=== PATIENT | male | born 1930 | race Caucasian/White ===

== ENCOUNTER 2017-08-27 05:11 | Emergency (ER) | payer MEDICARE, BC ==
[2017-08-27 05:18] VITALS: BP 108/66
[2017-08-27 06:05] LABS: CHLORIDE,CL 101 mmol/L (101-111); SODIUM,NA 135 mmol/L (135-145)
--- NOTE | 2017-08-27 06:53 | EDM.PDOC ---
<Yvonne Irizarry - Last Filed: 08/27/17 06:49> ED HPI GENERAL MEDICAL PROBLEM - General Chief Complaint: Abdominal Pain Stated Complaint: SICK, ABD PAIN [id number] Time Seen by Provider: 08/27/17 05:20 Source of Information: Reports: Patient History Limitations: Reports: No Limitations - History of Present Illness INITIAL COMMENTS - FREE TEXT/NARRATIVE: C/o low abdominal pain starting 2 days ago, notes pain to have started epigastric and moved down. 6 dark diarrhea stools 2 days ago, 2 yesterday. Pain constant tonight. Denies nausea vomiting No fevers or chills. No prior hx of similar surgeries Bilateral Lower Abdomen Pain Score (Numeric/FACES): 10 - Related Data Allergies Allergy/AdvReac Type Severity Reaction Status Date / Time latex Allergy Unknown UNKNOWN Verified 08/27/17 05:18 SULFA Allergy Unknown Swelling Uncoded 08/27/17 05:18 Home Meds: Home Meds Aspirin 162 mg PO DAILY 02/04/15 [History] Atenolol 25 mg PO DAILY 02/04/15 [History] Multivitamin [Multivitamins] 1 each PO DAILY 02/04/15 [History] Simvastatin 20 mg PO DAILY 02/04/15 [History] Tamsulosin [Tamsulosin 24 Hr] 0.4 mg PO DAILY 02/04/15 [History] Vitamin E 400 unit PO DAILY 02/04/15 [History] Pantoprazole [ProTONIX] 40 mg PO DAILY 09/26/16 [History] Garlic 100 mg PO DAILY 09/27/16 [History] Past Medical History HEENT History: Reports: Impaired Vision Cardiovascular History: Reports: Hypertension Gastrointestinal History: Reports: GERD Oncologic (Cancer) History: Reports: Basal Cell Carcinoma, Prostate, Other (See Below) - Past Surgical History Cardiovascular Surgical History: Reports: Coronary Artery Stent Male Surgical History: Reports: Prostatectomy Musculoskeletal Surgical History: Reports: Hip Replacement, Shoulder Surgery, Other (See Below) Other Musculoskeletal Surgeries/Procedures:: wrist surgery Social & Family History - Tobacco Use Smoking Status *Q: Former Smoker Used Tobacco, but Quit: Yes Month/Year Tobacco Last Used: Second Hand Smoke Exposure: No - Recreational Drug Use Recreational Drug Use: No ED ROS GENERAL - Review of Systems Review Of Systems: ROS reveals no pertinent complaints other than HPI. ED EXAM, GI/ABD - Physical Exam Exam: See Below Exam Limited By: No Limitations General Appearance: Alert, Mild Distress Eyes: Bilateral: EOMI Ears: Normal External Exam Nose: Normal Inspection Throat/Mouth: Normal Inspection Head: Atraumatic, Normocephalic Neck: Normal Inspection Respiratory/Chest: No Respiratory Distress, Lungs Clear, Normal Breath Sounds Cardiovascular: Normal Peripheral Pulses, Regular Rate, Rhythm GI/Abdominal Exam: Guarding (Right lower), Tender (generalized lower greater on right no rebound), Abnormal Bowel Sounds (decreased left, increased) Rectal (Males) Exam: Normal Rectal Tone, Heme - Stool, Hemorrhoids Back Exam: Normal Inspection Extremities: Normal Inspection Neurological: Alert, Oriented, Normal Cognition Psychiatric: Normal Affect, Normal Mood Skin Exam: Warm, Dry, Intact, Normal Color Course - Vital Signs Last Recorded V/S: Last Vital Signs Temp 97.6 F 08/27/17 05:15 Pulse 116 H 08/27/17 05:15 Resp 18 08/27/17 05:15 BP 108/66 08/27/17 05:15 Pulse Ox 98 08/27/17 05:15 - Orders/Labs/Meds Orders: Active Orders 24 hr Category Date Time Status CULTURE BLOOD [BC] Stat Lab 08/27/17 06:05 Received Hemoccult, Stool [OCCULT BLOOD DIAGNOSTIC] [OP] Stat Lab 08/27/17 06:02 Ordered UA W/MICROSCOPIC [URIN] Stat Lab 08/27/17 05:33 Ordered Labs: Laboratory Tests 08/27/17 08/27/17 08/27/17 Range/Units 05:38 05:38 06:05 WBC 10.4 H (5.0-10.0) 10^3/uL RBC 4.33 L (4.6-6.2) 10^6/uL Hgb 13.6 L (14.0-18.0) g/dL Hct 41.0 (40.0-54.0) % MCV 94.7 (80-100) fL MCH 31.4 (27.0-34.0) pg MCHC 33.2 (33.0-35.0) g/dL Plt Count 141 L (150-450) 10^3/uL Neut % (Auto) 80.6 H (42.2-75.2) % Lymph % (Auto) 12.0 L (20.5-50.1) % [place] % (Auto) 7.3 (2-8) % Eos % (Auto) 0.0 L (1.0-3.0) % Baso % (Auto) 0.1 (0.0-1.0) % Sodium 135 (135-145) mmol/L Potassium 3.9 (3.6-5.0) mmol/L Chloride 101 (101-111) mmol/L Carbon Dioxide 26.0 (21.0-31.0) mmol/L Anion Gap 11.9 BUN 14 (7-18) mg/dL Creatinine 1.0 (0.6-1.3) mg/dL Est Cr Clr Drug Dosing 58.20 mL/min Estimated GFR (MDRD) > 60 BUN/Creatinine Ratio 14.00 Glucose 117 H (74-105) mg/dL Lactic Acid 1.2 (0.5-2.2) mmol/L Calcium 9.1 (8.4-10.2) mg/dl Total Bilirubin 0.9 (0.2-1.0) mg/dL AST 27 (10-42) IU/L ALT 21 (10-60) IU/L Alkaline Phosphatase 51 (42-121) IU/L Troponin I 0.02 (0.00-0.02) ng/ml Total Protein 7.3 (6.7-8.2) g/dl Albumin 3.9 (3.2-5.5) g/dl Globulin 3.4 Albumin/Globulin Ratio 1.15 Amylase 28 (28-100) U/L Departure - Departure Disposition: DC/Tfer to [facility] 02 Clinical Impression: Abdominal pain Qualifiers: Abdominal location: right lower quadrant Qualified Code(s): R10.31 - Right lower quadrant pain Appendicitis Qualifiers: Appendicitis type: acute appendicitis Acute appendicitis type: unspecified acute appendicitis type Qualified Code(s): K35.80 - Unspecified acute appendicitis - Discharge Information Forms: ED Department Discharge, Interfacility Transfer EMTALA <Abby Vyas - Last Filed: 08/27/17 07:37> Course - Radiology Interpretation Free Text/Narrative:: CT Abdomen/Pelvis: Acute Appendicitis See Rad report - Re-Assessments/Exams Free Text/Narrative Re-Assessment/Exam: 08/27/17 07:32 CRAIG Gee, discussed p Departure - Departure Time of Disposition: 07:35 Condition: Fair
[2017-08-27] MEDS ORDERED: HYDROmorphone 0.5 MG/0.5 ML Syringe IVPUSH ONE ×2 (07:44→07:47)
== END 2017-08-27 08:15 ==
LOC: DL.ED 05:11
DX: K35.80 Unspecified acute appendicitis (principal); I10 Essential (primary) hypertension; Z91.040 Latex allergy status; Z88.2 Allergy status to sulfonamides; Z79.82 Long term (current) use of aspirin; Z79.899 Other long term (current) drug therapy; Z87.891 Personal history of nicotine dependence
CPT/HCPCS: 36415; 74176; 80053; 82150; 82272; 83605; 84484; 85025; 87040; 99285; J1170; 99284

== ENCOUNTER 2017-09-29 16:17 | Inpatient (IN) | payer MEDICARE, BC ==
[2017-09-29] MEDS ORDERED: Docusate Sodium 100 MG Cap PO PRN (17:35)
[2017-09-29] MEDS ORDERED: Ondansetron 4 MG/2 ML SDV IVPUSH PRN (17:35)
[2017-09-29] MEDS ORDERED: Sodium Chloride 0.9% 500 ML IV SCH (17:45)
[2017-09-29] MEDS: Sodium Chloride 0.9% 1,000 ML IV SCH (18:33)
[2017-09-29] MEDS ORDERED: Piperacillin/Tazobactam 2.25 GM in Sodium Chloride 0.9% 50 ML IV SCH (19:30)
[2017-09-29] MEDS: Piperacillin/Tazobactam 3.375 GM in Sodium Chloride 0.9% 100 ML IV SCH (21:33)
[2017-09-30] MEDS: Piperacillin/Tazobactam 3.375 GM in Sodium Chloride 0.9% 100 ML IV SCH ×4 (02:10→20:37)
[2017-09-30] MEDS: Sodium Chloride 0.9% 1,000 ML IV SCH ×3 (03:46→20:39)
[2017-09-30] MEDS: Acetaminophen 325 MG Tab PO PRN ×2 (05:39→20:36)
[2017-09-30] MEDS: Pantoprazole 40 MG Tab.CR PO SCH (05:39)
[2017-09-30 06:47] LABS: ANION GAP 12.7
[2017-09-30] MEDS ORDERED: Atenolol 25 MG Tab PO SCH (09:00)
[2017-09-30] MEDS: Tamsulosin 0.4 MG Cap.ER PO SCH (09:28)
[2017-09-30] MEDS: Aspirin 81 MG Tab.Chew PO SCH (09:28)
[2017-09-30] MEDS: Digoxin 125 MCG Tab PO SCH (09:28)
[2017-09-30] MEDS: Amiodarone 200 MG Tab PO SCH ×2 (09:29→20:37)
[2017-09-30] MEDS: Enoxaparin 30 MG/0.3 ML Syringe SUBCUT SCH (09:29)
[2017-10-01] MEDS: Piperacillin/Tazobactam 3.375 GM in Sodium Chloride 0.9% 100 ML IV SCH ×4 (02:11→20:21)
[2017-10-01] MEDS: REFRESH OPTIVE EYEBOTH PRN (02:12)
[2017-10-01] MEDS: Pantoprazole 40 MG Tab.CR PO SCH ×2 (04:57→05:05)
[2017-10-01] MEDS: Sodium Chloride 0.9% 1,000 ML IV SCH ×3 (05:48→23:21)
[2017-10-01 06:39] LABS: ANION GAP 10.3; CHLORIDE,CL 106 mmol/L (101-111); SODIUM,NA 136 mmol/L (135-145)
[2017-10-01] MEDS ORDERED: Potassium Chloride 10 MEQ Tab.ER PO ONE ×2 (07:40→20:44)
[2017-10-01] MEDS: Tamsulosin 0.4 MG Cap.ER PO SCH (09:01)
[2017-10-01] MEDS: Digoxin 125 MCG Tab PO SCH (09:01)
[2017-10-01] MEDS: Amiodarone 200 MG Tab PO SCH ×2 (09:01→20:21)
[2017-10-01] MEDS: Aspirin 81 MG Tab.Chew PO SCH (09:02)
[2017-10-01] MEDS: metroNIDAZOLE/Normal Saline 500 MG in Premix Bag 100 BAG IV SCH ×3 (09:04→23:14)
[2017-10-01] MEDS: Enoxaparin 30 MG/0.3 ML Syringe SUBCUT SCH (10:39)
--- NOTE | 2017-10-01 11:42 | PN ---
DATE: 10/01/2017 The patient is still having some low-grade temperature, and because of this, we did a CAT scan of his abdomen and CAT scan of the abdomen showed an interval appendectomy and partial colectomy with ileocolic anastomosis since 08/27/2017 and there was some inflammatory haziness and stranding on the right side mesentery in the operative region which could be residual from the surgery or infectious with an apparent extraluminal 3.7 cm focus of fluid which may represent seroma or developing abscess. There is also some mild dilatation and wall thickening of the small bowel loops in the right mid abdomen, and this was discussed with the patient. The patient denies though any significant abdominal pain. His appetite has been improving and good. LABORATORY DATA: Lab workup this morning, WBC is 7.1, hemoglobin is 8.3, hematocrit is 25.4, platelet is 257. Potassium is 3.3, the rest of the panel unremarkable. Urine culture, preliminary result is no growth and blood culture is also no growth so far. OBJECTIVE: Vital Signs: Blood pressure is 139/65, pulse of 102, respiration 18, temperature of 98.6. Heart: Regular rate and rhythm. Normal S1 and S2. No gallops. No rubs. Lungs: Clear. No crackles. No wheezing. Abdomen: Soft and nontender. Bowel sounds positive. Extremities: Negative for any significant pedal edema. No calf tenderness. PLAN: I am going to add Flagyl 500 mg IV q.8 hours to his current IV antibiotics (Zosyn) because of the continued low grade temperature. I am also going to give potassium 40 mEq p.o. x1 today because of the slightly low potassium, otherwise we will continue with the rest of his medication. [facility] /[id number]
[2017-10-01] MEDS: traZODone 50 MG Tab PO SCH (20:21)
[2017-10-02] MEDS: Piperacillin/Tazobactam 3.375 GM in Sodium Chloride 0.9% 100 ML IV SCH ×4 (03:09→20:56)
[2017-10-02] MEDS: Pantoprazole 40 MG Tab.CR PO SCH (05:40)
[2017-10-02 06:54] LABS: ANION GAP 11.9; CHLORIDE,CL 103 mmol/L (101-111); SODIUM,NA 133 mmol/L (135-145)
--- NOTE | 2017-10-02 07:23 | PN ---
DATE: 09/30/2017 SUBJECTIVE: The patient this morning is feeling slightly better, still a little bit weak though; but he denies any chest pain, shortness of breath, significant abdominal pain, vomiting, nor any other complaints. Urinalysis was sent, and this showed 5 to 10 wbc's with many epithelial cells and many bacteria. This was sent for culture, and recheck digoxin level this morning is. 1.6 which is now within normal limits. Chem 6 this morning; sodium is 133, BUN is 28, and calcium 7.8. The rest of the panel is unremarkable. OBJECTIVE: Vital Signs: Blood pressure is 98/55 (improving), pulse 87, respirations 16, and temperature of 99. Heart: Regular rate and rhythm. No gallops. No rubs. Lungs: Equal bilaterally. No crackles. No wheezing. Abdomen: Soft. There is mild direct tenderness on the periumbilical area. No rebound. Bowel sounds positive. Extremities: Negative for any significant pedal edema. No calf tenderness. MEDICATIONS: Reviewed. PLAN: We will restart digoxin at a lower level of 0.125 mg daily. We will also restart his amiodarone. We will continue with IV Zosyn. I am also going to order for a CAT scan of the abdomen and pelvis as the focus of infection is still not yet clear-cut, as his urine is not remarkable and a chest x-ray is also unremarkable. I would like to make sure that there is nothing going on in the intraabdominal area, especially of his recent abdominal surgery. [facility] /[id number]
[2017-10-02] MEDS: metroNIDAZOLE/Normal Saline 500 MG in Premix Bag 100 BAG IV SCH (08:46)
[2017-10-02] MEDS: Tamsulosin 0.4 MG Cap.ER PO SCH (08:51)
[2017-10-02] MEDS: Amiodarone 200 MG Tab PO SCH ×2 (08:51→20:59)
[2017-10-02] MEDS: Digoxin 125 MCG Tab PO SCH (08:51)
[2017-10-02] MEDS: Enoxaparin 30 MG/0.3 ML Syringe SUBCUT SCH (08:51)
[2017-10-02] MEDS: Aspirin 81 MG Tab.Chew PO SCH (08:51)
--- NOTE | 2017-10-02 09:11 | HP ---
DOS: 09/29/2017 CHIEF COMPLAINT: Fever, chills, and generalized weakness. HISTORY OF PRESENT ILLNESS: The patient is an 86-year-old gentleman who was admitted directly from [facility] because the patient for the last couple of days has not been feeling good, and last night, he started having some fever and chills. He also had some decreased appetite and poor intake. The patient denies, though, any chest pain, shortness of breath, abdominal pain, nausea, vomiting, diarrhea, dysuria, nor any other associated symptoms. Because of this, he came into the clinic for further evaluation and management, and he was subsequently admitted. The patient was recently discharge from [facility] in [place] because of acute perforated appendicitis and also noted to have neoplasm of the right colon, and so the patient underwent partial right hemicolectomy. During the hospitalization, he also had some atrial tachycardia, for which he was started on amiodarone and also was placed on digoxin. He was subsequently discharged, and he was being followed by home health care for wound dressing until his symptomatology started. PAST MEDICAL HISTORY: As in [facility]. He has also history of coronary artery disease, dyslipidemia, hypertension, and neuropathy. SOCIAL HISTORY: The patient is . He is a nonsmoker, nonalcohol drinker, and lives with his . FAMILY HISTORY: Noncontributory. REVIEW OF SYSTEMS: As in [facility]. The rest of the review of systems is negative. ALLERGIES: Sulfa and latex. HOME MEDICATIONS: 1. Vitamin E. 2. Kenalog. 3. Flomax. 4. [place] nasal spray. 5. Simvastatin. 6. Protonix. 7. Fish oil. 8. Metoprolol. 9. Digoxin. 10.Amiodarone. PHYSICAL EXAMINATION: General: The patient is alert, looks weak, on a wheelchair, but not in any acute distress. SHEENT: Remarkable for diminished skin turgor. Mucous membranes moist. Neck: Supple. No JVD. Heart: Regular rate and rhythm. Normal S1 and S2. No gallops. No rubs. Lungs: Equal bilaterally. No crackles. No wheezing. Abdomen: Soft and nontender. Bowel sounds positive. Drain tube in place. Extremities: Negative for any pedal edema. No calf tenderness. LAB WORKUP: CBC; WBC is 13.09, hemoglobin is 10.6, hematocrit is 31.6, neutrophils is 81.6% with some immature granulocytes relative percent. There is some toxic polymorphonuclears noted. Comp panel; glucose is 143, creatinine is 1.9, BUN is 26, sodium is 134, and total protein is 6.3. Digoxin level is 2.1. IMAGING: Chest x-ray that was done in the clinic, my reading is unremarkable. ADMITTING DIAGNOSES: 1. Systemic inflammatory response syndrome. 2. Digoxin toxicity. 3. Dehydration. 4. Acute renal insufficiency. 5. Coronary artery disease. TREATMENT PLAN: The patient is going to be admitted to telemetry floor. He will be started on IV fluids and empirically started on IV antibiotics. Blood cultures will be sent. Digoxin will be decreased to 125 mcg p.o. daily, and the rest of the management as necessary. [facility] /[id number]
--- NOTE | 2017-10-02 11:22 | PCM.PN ---
- General Info Date of Service: 10/02/17 Admission Dx/Problem (Free Text): The patient is an 86-year-old man with complex medical history including coronary artery disease and atrial fibrillation. He recently underwent surgery for right colon cancer, had right adilson-colectomy. He was admitted this time because of fever chills and generalized weakness. CT scan of the abdomen suggested fluid collection around the site of recent surgery , possibly a seroma versus evolving abscess. Patient was started on intravenous antibiotics. Digoxin level was also found to be elevated. - Review of Systems General: Reports: Weakness, Malaise HEENT: Reports: No Symptoms Pulmonary: Reports: No Symptoms Cardiovascular: Reports: No Symptoms Gastrointestinal: Reports: Abdominal Pain Musculoskeletal: Reports: No Symptoms - Patient Data Vitals - Most Recent: Last Vital Signs Temp 37.2 C 10/01/17 19:52 Pulse 100 10/02/17 08:51 Resp 20 10/01/17 19:52 BP 140/57 L 10/01/17 19:52 Pulse Ox 93 L 10/01/17 19:52 Weight - Most Recent: 91.172 kg I&O - Last 24 Hours: Intake & Output 10/01/17 10/02/17 10/02/17 22:59 06:59 14:59 Intake Total 340 400 Output Total 325 600 Balance 15 -200 Lab Results Last 24 Hours: Laboratory Results - last 24 hr 10/02/17 10/02/17 Range/Units 05:50 05:50 WBC 7.4 (5.0-10.0) 10^3/uL RBC 2.87 L (4.6-6.2) 10^6/uL Hgb 8.5 L (14.0-18.0) g/dL Hct 25.9 L (40.0-54.0) % MCV 90.2 (80-100) fL MCH 29.6 (27.0-34.0) pg MCHC 32.8 L (33.0-35.0) g/dL Plt Count 256 (150-450) 10^3/uL Neut % (Auto) 70.5 (42.2-75.2) % Lymph % (Auto) 19.9 L (20.5-50.1) % [place] % (Auto) 8.9 H (2-8) % Eos % (Auto) 0.7 L (1.0-3.0) % Baso % (Auto) 0.0 (0.0-1.0) % Sodium 133 L (135-145) mmol/L Potassium 3.9 (3.6-5.0) mmol/L Chloride 103 (101-111) mmol/L Carbon Dioxide 22.0 (21.0-31.0) mmol/L Anion Gap 11.9 BUN 11 (7-18) mg/dL Creatinine 0.7 (0.6-1.3) mg/dL Est Cr Clr Drug Dosing 83.14 mL/min Estimated GFR (MDRD) > 60 Glucose 91 (74-105) mg/dL Calcium 7.7 L (8.4-10.2) mg/dl Pedro Results Last 24 Hours: Microbiology 09/30/17 00:15 Urine Culture - Final Urine, Clean Catch 09/29/17 18:00 Aerobic Blood Culture - Preliminary Blood NO GROWTH AFTER 2 DAYS Anaerobic Blood Culture - Preliminary NO GROWTH AFTER 2 DAYS Med Orders - Current: Current Medications Acetaminophen (Tylenol) 650 mg PO Q4H PRN PRN Reason: Pain (Mild 1-3)/fever Last Admin: 09/30/17 20:36 Dose: 650 mg Amiodarone HCl (Cordarone) 200 mg PO BID [facility] Last Admin: 10/02/17 08:51 Dose: 200 mg Aspirin (Aspirin) 162 mg PO DAILY [facility] Last Admin: 10/02/17 08:51 Dose: 162 mg Digoxin (Lanoxin) 125 mcg PO DAILY [facility] Last Admin: 10/02/17 08:51 Dose: 125 mcg Docusate Sodium (Colace) 100 mg PO BID PRN PRN Reason: Constipation Enoxaparin Sodium (Lovenox) 40 mg SUBCUT DAILY [facility] Piperacillin Sod/Tazobactam (Sod 3.375 gm/ Sodium Chloride) 100 mls @ 200 mls/ hr IV Q6H [facility] Last Admin: 10/02/17 10:11 Dose: 200 mls/hr Sodium Chloride (Normal Saline) 1,000 mls @ 75 mls/hr IV ASDIRECTED [facility] Last Admin: 10/01/17 23:21 Dose: 75 mls/hr Metoprolol Tartrate (Lopressor) 100 mg PO BID [facility] Refresh Optive Own (Med) 0 each EYEBOTH ASDIRECTED PRN PRN Reason: Dry Eyes Last Admin: 10/01/17 02:12 Dose: 1 each Ondansetron HCl (Zofran) 4 mg IVPUSH Q4H PRN PRN Reason: Nausea/Vomiting Pantoprazole Sodium (Protonix) 40 mg PO ACBRK [facility] Last Admin: 10/02/17 05:40 Dose: 40 mg Tamsulosin HCl (Flomax) 0.4 mg PO DAILY [facility] Last Admin: 10/02/17 08:51 Dose: 0.4 mg Trazodone HCl (Trazodone) 50 mg PO BEDTIME [facility] Last Admin: 10/01/17 20:21 Dose: 50 mg Discontinued Medications Atenolol (Tenormin) 25 mg PO DAILY [facility] Enoxaparin Sodium (Lovenox) 30 mg SUBCUT DAILY [facility] Last Admin: 10/02/17 08:51 Dose: 30 mg Sodium Chloride (Normal Saline) 500 mls @ 500 mls/hr IV .BOLUS [facility] Last Admin: 09/29/17 17:20 Dose: 500 mls/hr Sodium Chloride (Normal Saline) 1,000 mls @ 125 mls/hr IV ASDIRECTED [facility] Last Admin: 10/01/17 05:48 Dose: 125 mls/hr Piperacillin Sod/Tazobactam (Sod 2.25 gm/ Sodium Chloride) 50 mls @ 100 mls/hr IV Q6HR [facility] Last Admin: 09/29/17 21:37 Dose: Not Given Metronidazole 500 mg/ Premix 100 mls @ 100 mls/hr IV Q8H [facility] Last Admin: 10/02/17 08:46 Dose: 100 mls/hr Potassium Chloride (Klor-Con 10) 40 meq PO ONETIME ONE Stop: 10/01/17 07:41 Last Admin: 10/01/17 09:00 Dose: 40 meq Potassium Chloride (Klor-Con 10) 40 meq PO ONETIME ONE Stop: 10/01/17 20:45 Last Admin: 10/01/17 23:14 Dose: 40 meq - Exam Quality Assessment: Supplemental Oxygen General: Alert, Oriented Neck: Supple Cardiovascular: Regular Rhythm, Tachycardia GI/Abdominal Exam: Other (Wound VAC applied to lower abdomen) - Problem List Review Problem List Initiated/Reviewed/Updated: Yes - My Orders Last 24 Hours: My Active Orders 10/01/17 21:00 traZODone 50 mg PO BEDTIME 10/02/17 10:23 OT Evaluation and Treatment [CONS] Routine 10/02/17 10:24 PT Evaluation and Treatment [CONS] Routine 10/02/17 21:00 Metoprolol Tartrate [Lopressor] 100 mg PO BID - Plan Plan:: #. Systemic inflammatory response syndrome Patient presented with subjective fever, and was found to have leukocytosis white count of 13,000. Reason for this is not obvious. Differential diagnosis includes infection. CT scan of the abdomen showed fluid collection around the site of recent surgery. Significance is unclear, could be a seroma or an evolving abscess #. Elevated digoxin level serum digoxin was elevated up to 2.1 #. Acute renal failure Serum creatinine was elevated up to 1.9 Improving #. Status post recent abdominal surgery Patient had right hemicolectomy Has fluid collection around the surgical site. Could be a seroma but also could be an evolving abscess #. Atrial fibrillation The patient was on digoxin, metoprolol, and amiodarone Atrial fibrillation has been very difficult to control Plan: Continue intravenous antibiotics. The patient appears to be improving. His white cell count is down to normal. Has not had any fever since admission. Kidney function is also back to normal. Digoxin is on hold. Start patient back on metoprolol and continue amiodarone.
[2017-10-02] MEDS: Sodium Chloride 0.9% 1,000 ML IV SCH (15:51)
[2017-10-02] MEDS: Metoprolol Tartrate 50 MG Tab PO SCH (20:59)
[2017-10-02] MEDS: traZODone 50 MG Tab PO SCH (20:59)
[2017-10-03] MEDS: Piperacillin/Tazobactam 3.375 GM in Sodium Chloride 0.9% 100 ML IV SCH ×4 (02:06→20:09)
[2017-10-03] MEDS: Pantoprazole 40 MG Tab.CR PO SCH (05:42)
[2017-10-03] MEDS: Sodium Chloride 0.9% 1,000 ML IV SCH (05:54)
[2017-10-03] MEDS: Enoxaparin 40 MG/0.4 ML Syringe SUBCUT SCH (08:11)
[2017-10-03] MEDS: Metoprolol Tartrate 50 MG Tab PO SCH ×2 (08:12→20:56)
[2017-10-03] MEDS: Aspirin 81 MG Tab.Chew PO SCH (08:12)
[2017-10-03] MEDS: Amiodarone 200 MG Tab PO SCH ×2 (08:12→20:56)
[2017-10-03] MEDS: Tamsulosin 0.4 MG Cap.ER PO SCH (10:07)
--- NOTE | 2017-10-03 10:30 | PCM.PN ---
- General Info Date of Service: 10/03/17 Admission Dx/Problem (Free Text): The patient is an 86-year-old man with complex medical history including coronary artery disease and atrial fibrillation. He recently underwent surgery for right colon cancer, had right adilson-colectomy. He was admitted this time because of fever chills and generalized weakness. CT scan of the abdomen suggested fluid collection around the site of recent surgery , possibly a seroma versus evolving abscess. Patient was started on intravenous antibiotics. Digoxin level was also found to be elevated. - Review of Systems General: Reports: Weakness, Malaise HEENT: Reports: No Symptoms Cardiovascular: Reports: No Symptoms Gastrointestinal: Reports: Abdominal Pain Skin: Reports: No Symptoms - Patient Data Vitals - Most Recent: Last Vital Signs Temp 36.9 C 10/03/17 07:39 Pulse 85 10/03/17 08:12 Resp 20 10/03/17 07:39 BP 142/64 H 10/03/17 08:12 Pulse Ox 93 L 10/03/17 07:39 Weight - Most Recent: 91.172 kg I&O - Last 24 Hours: Intake & Output 10/02/17 10/03/17 10/03/17 22:59 06:59 14:59 Intake Total 2273 1252 501 Output Total 600 800 150 Balance 1673 452 351 Pedro Results Last 24 Hours: Microbiology 09/29/17 18:00 Aerobic Blood Culture - Preliminary Blood NO GROWTH AFTER 3 DAYS Anaerobic Blood Culture - Preliminary NO GROWTH AFTER 3 DAYS 09/30/17 00:15 Urine Culture - Final Urine, Clean Catch Med Orders - Current: Current Medications Acetaminophen (Tylenol) 650 mg PO Q4H PRN PRN Reason: Pain (Mild 1-3)/fever Last Admin: 09/30/17 20:36 Dose: 650 mg Amiodarone HCl (Cordarone) 200 mg PO BID [facility] Last Admin: 10/03/17 08:12 Dose: 200 mg Aspirin (Aspirin) 162 mg PO DAILY [facility] Last Admin: 10/03/17 08:12 Dose: 162 mg Docusate Sodium (Colace) 100 mg PO BID PRN PRN Reason: Constipation Enoxaparin Sodium (Lovenox) 40 mg SUBCUT DAILY [facility] Last Admin: 10/03/17 08:11 Dose: 40 mg Piperacillin Sod/Tazobactam (Sod 3.375 gm/ Sodium Chloride) 100 mls @ 200 mls/ hr IV Q6H [facility] Last Admin: 10/03/17 08:10 Dose: 200 mls/hr Metoprolol Tartrate (Lopressor) 100 mg PO BID [facility] Last Admin: 10/03/17 08:12 Dose: 100 mg Refresh Optive Own (Med) 0 each EYEBOTH ASDIRECTED PRN PRN Reason: Dry Eyes Last Admin: 10/01/17 02:12 Dose: 1 each Ondansetron HCl (Zofran) 4 mg IVPUSH Q4H PRN PRN Reason: Nausea/Vomiting Pantoprazole Sodium (Protonix) 40 mg PO ACBRK [facility] Last Admin: 10/03/17 05:42 Dose: 40 mg Tamsulosin HCl (Flomax) 0.4 mg PO DAILY [facility] Last Admin: 10/03/17 10:07 Dose: 0.4 mg Trazodone HCl (Trazodone) 50 mg PO BEDTIME [facility] Last Admin: 10/02/17 20:59 Dose: 50 mg Discontinued Medications Atenolol (Tenormin) 25 mg PO DAILY [facility] Digoxin (Lanoxin) 125 mcg PO DAILY [facility] Last Admin: 10/02/17 08:51 Dose: 125 mcg Enoxaparin Sodium (Lovenox) 30 mg SUBCUT DAILY [facility] Last Admin: 10/02/17 08:51 Dose: 30 mg Sodium Chloride (Normal Saline) 500 mls @ 500 mls/hr IV .BOLUS [facility] Last Admin: 09/29/17 17:20 Dose: 500 mls/hr Sodium Chloride (Normal Saline) 1,000 mls @ 125 mls/hr IV ASDIRECTED [facility] Last Admin: 10/01/17 05:48 Dose: 125 mls/hr Piperacillin Sod/Tazobactam (Sod 2.25 gm/ Sodium Chloride) 50 mls @ 100 mls/hr IV Q6HR [facility] Last Admin: 09/29/17 21:37 Dose: Not Given Metronidazole 500 mg/ Premix 100 mls @ 100 mls/hr IV Q8H [facility] Last Admin: 10/02/17 08:46 Dose: 100 mls/hr Sodium Chloride (Normal Saline) 1,000 mls @ 75 mls/hr IV ASDIRECTED [facility] Last Admin: 10/03/17 05:54 Dose: 75 mls/hr Potassium Chloride (Klor-Con 10) 40 meq PO ONETIME ONE Stop: 10/01/17 07:41 Last Admin: 10/01/17 09:00 Dose: 40 meq Potassium Chloride (Klor-Con 10) 40 meq PO ONETIME ONE Stop: 10/01/17 20:45 Last Admin: 10/01/17 23:14 Dose: 40 meq - Exam General: Alert, Oriented, Cooperative HEENT: Pupils Equal Neck: Supple Lungs: Clear to Auscultation Cardiovascular: Regular Rate, Regular Rhythm GI/Abdominal Exam: Soft, Other (Swelling left abdominal flank likely due to edema. Patient has a wound VAC in place) Neurological: No New Focal Deficit - Problem List Review Problem List Initiated/Reviewed/Updated: Yes - My Orders Last 24 Hours: My Active Orders 10/02/17 10:23 OT Evaluation and Treatment [CONS] Routine 10/02/17 10:24 PT Evaluation and Treatment [CONS] Routine 10/02/17 21:00 Metoprolol Tartrate [Lopressor] 100 mg PO BID - Plan Plan:: #. Systemic inflammatory response syndrome Patient presented with subjective fever, and was found to have leukocytosis white count of 13,000. Reason for this is not obvious. Differential diagnosis includes infection. CT scan of the abdomen showed fluid collection around the site of recent surgery. Significance is unclear, could be a seroma or an evolving abscess #. Elevated digoxin level serum digoxin was elevated up to 2.1 #. Acute renal failure Serum creatinine was elevated up to 1.9 Resolved #. Status post recent abdominal surgery Patient had right hemicolectomy Patient is to has a wound VAC in place Has fluid collection around the surgical site. Could be a seroma but also could be an evolving abscess #. Atrial fibrillation patient is in sinus rhythm at this time The patient was on digoxin, metoprolol, and amiodarone Atrial fibrillation has been very difficult to control Plan: Discontinue digoxin completely Discontinue intravenous fluid Discontinue telemetry Provide incentive spirometry Obtain complete blood count Obtain basic metabolic panel Encourage increased activity Continue intravenous Zosyn to complete 10 days
[2017-10-03] MEDS: Digoxin 125 MCG Tab PO SCH (11:41)
[2017-10-03] MEDS: Sodium Chloride 0.9% 10 ML Syringe FLUSH PRN ×2 (20:09→20:51)
[2017-10-03] MEDS: traZODone 50 MG Tab PO SCH (20:56)
[2017-10-03] MEDS: REFRESH OPTIVE EYEBOTH PRN (20:59)
[2017-10-04] MEDS: Sodium Chloride 0.9% 10 ML Syringe FLUSH PRN ×3 (01:40→20:56)
[2017-10-04] MEDS: Piperacillin/Tazobactam 3.375 GM in Sodium Chloride 0.9% 100 ML IV SCH ×4 (01:41→20:10)
[2017-10-04] MEDS: Acetaminophen 325 MG Tab PO PRN ×2 (04:40→20:15)
[2017-10-04] MEDS: Pantoprazole 40 MG Tab.CR PO SCH (06:10)
[2017-10-04 07:50] LABS: ANION GAP 17.2
[2017-10-04 07:51] LABS: CHLORIDE,CL 100 mmol/L (98-109); SODIUM,NA 137 mmol/L (138-146)
[2017-10-04] MEDS: Aspirin 81 MG Tab.Chew PO SCH (08:00)
[2017-10-04] MEDS: Amiodarone 200 MG Tab PO SCH ×2 (08:00→20:58)
[2017-10-04] MEDS: Metoprolol Tartrate 50 MG Tab PO SCH ×2 (08:00→20:57)
[2017-10-04] MEDS: Enoxaparin 40 MG/0.4 ML Syringe SUBCUT SCH (08:00)
[2017-10-04] MEDS: Tamsulosin 0.4 MG Cap.ER PO SCH (08:00)
[2017-10-04] MEDS ORDERED: Potassium Chloride 10 MEQ Tab.ER PO ONE (09:36)
--- NOTE | 2017-10-04 10:20 | PCM.PN ---
- General Info Date of Service: 10/04/17 Subjective Update: Patient states that he did not sleep much last night. He woke up about midnight and was having trouble getting back to sleep. Does have mild intermittent abdominal discomfort. He did have a large bowel movement yesterday His serum potassium is low down to 3.2 today. Denies nausea or vomiting. - Review of Systems General: Reports: Weakness HEENT: Reports: No Symptoms Pulmonary: Reports: No Symptoms Cardiovascular: Reports: No Symptoms Gastrointestinal: Reports: Abdominal Pain Musculoskeletal: Reports: No Symptoms Skin: Reports: No Symptoms - Patient Data Vitals - Most Recent: Last Vital Signs Temp 37.2 C 10/04/17 07:59 Pulse 81 10/04/17 08:00 Resp 18 10/04/17 07:59 BP 116/58 L 10/04/17 08:00 Pulse Ox 94 L 10/04/17 07:59 Weight - Most Recent: 91.172 kg I&O - Last 24 Hours: Intake & Output 10/03/17 10/04/17 10/04/17 22:59 06:59 14:59 Intake Total 150 200 100 Output Total 400 550 Balance -250 -350 100 Lab Results Last 24 Hours: Laboratory Results - last 24 hr 10/04/17 10/04/17 Range/Units 06:45 06:45 WBC 7.2 (5.0-10.0) 10^3/uL RBC 3.11 L (4.6-6.2) 10^6/uL Hgb 9.0 L (14.0-18.0) g/dL Hct 27.7 L (40.0-54.0) % MCV 89.1 (80-100) fL MCH 28.9 (27.0-34.0) pg MCHC 32.5 L (33.0-35.0) g/dL Plt Count 256 (150-450) 10^3/uL Sodium 137 L (138-146) mmol/L Potassium 3.2 L (3.5-4.9) mmol/L Chloride 100 (98-109) mmol/L Carbon Dioxide 23 L (24-29) mmol/L Anion Gap 17.2 BUN 10 (8-26) mg/dL Creatinine 0.7 (0.6-1.3) mg/dL Est Cr Clr Drug Dosing 83.14 mL/min Estimated GFR (MDRD) > 60 Glucose 87 (70-105) mg/dL Calcium Pedro Results Last 24 Hours: Microbiology 09/29/17 18:00 Aerobic Blood Culture - Preliminary Blood NO GROWTH AFTER 4 DAYS Anaerobic Blood Culture - Preliminary NO GROWTH AFTER 4 DAYS Med Orders - Current: Current Medications Acetaminophen (Tylenol) 650 mg PO Q4H PRN PRN Reason: Pain (Mild 1-3)/fever Last Admin: 10/04/17 04:40 Dose: 650 mg Amiodarone HCl (Cordarone) 200 mg PO BID [facility] Last Admin: 10/04/17 08:00 Dose: 200 mg Aspirin (Aspirin) 162 mg PO DAILY [facility] Last Admin: 10/04/17 08:00 Dose: 162 mg Docusate Sodium (Colace) 100 mg PO BID PRN PRN Reason: Constipation Last Admin: 10/03/17 11:54 Dose: 100 mg Enoxaparin Sodium (Lovenox) 40 mg SUBCUT DAILY [facility] Last Admin: 10/04/17 08:00 Dose: 40 mg Piperacillin Sod/Tazobactam (Sod 3.375 gm/ Sodium Chloride) 100 mls @ 200 mls/ hr IV Q6H [facility] Last Infusion: 10/04/17 09:33 Dose: Infused Metoprolol Tartrate (Lopressor) 100 mg PO BID [facility] Last Admin: 10/04/17 08:00 Dose: 100 mg Refresh Optive Own (Med) 0 each EYEBOTH ASDIRECTED PRN PRN Reason: Dry Eyes Last Admin: 10/03/17 20:59 Dose: 1 each Ondansetron HCl (Zofran) 4 mg IVPUSH Q4H PRN PRN Reason: Nausea/Vomiting Pantoprazole Sodium (Protonix) 40 mg PO ACBRK [facility] Last Admin: 10/04/17 06:10 Dose: 40 mg Potassium Chloride (Klor-Con 10) 20 meq PO WITHBREAKFAST [facility] Senna/Docusate Sodium (Senna Plus) 1 tab PO DAILY [facility] Last Admin: 10/04/17 08:00 Dose: 1 tab Sodium Chloride (Saline Flush) 10 ml FLUSH ASDIRECTED PRN PRN Reason: Keep Vein Open Last Admin: 10/04/17 01:40 Dose: 10 ml Tamsulosin HCl (Flomax) 0.4 mg PO DAILY [facility] Last Admin: 10/04/17 08:00 Dose: 0.4 mg Trazodone HCl (Trazodone) 50 mg PO BEDTIME [facility] Last Admin: 10/03/17 20:56 Dose: 50 mg Discontinued Medications Atenolol (Tenormin) 25 mg PO DAILY [facility] Digoxin (Lanoxin) 125 mcg PO DAILY [facility] Last Admin: 10/03/17 11:41 Dose: Not Given Enoxaparin Sodium (Lovenox) 30 mg SUBCUT DAILY [facility] Last Admin: 10/02/17 08:51 Dose: 30 mg Sodium Chloride (Normal Saline) 500 mls @ 500 mls/hr IV .BOLUS [facility] Last Admin: 09/29/17 17:20 Dose: 500 mls/hr Sodium Chloride (Normal Saline) 1,000 mls @ 125 mls/hr IV ASDIRECTED [facility] Last Admin: 10/01/17 05:48 Dose: 125 mls/hr Piperacillin Sod/Tazobactam (Sod 2.25 gm/ Sodium Chloride) 50 mls @ 100 mls/hr IV Q6HR [facility] Last Admin: 09/29/17 21:37 Dose: Not Given Metronidazole 500 mg/ Premix 100 mls @ 100 mls/hr IV Q8H [facility] Last Admin: 10/02/17 08:46 Dose: 100 mls/hr Sodium Chloride (Normal Saline) 1,000 mls @ 75 mls/hr IV ASDIRECTED [facility] Last Admin: 10/03/17 05:54 Dose: 75 mls/hr Potassium Chloride (Klor-Con 10) 40 meq PO ONETIME ONE Stop: 10/01/17 07:41 Last Admin: 10/01/17 09:00 Dose: 40 meq Potassium Chloride (Klor-Con 10) 40 meq PO ONETIME ONE Stop: 10/01/17 20:45 Last Admin: 10/01/17 23:14 Dose: 40 meq Potassium Chloride (Klor-Con 10) 40 meq PO ONETIME ONE Stop: 10/04/17 09:37 - Exam Quality Assessment: Supplemental Oxygen General: Alert, Oriented, Cooperative HEENT: Pupils Equal, Pupils Reactive, EOMI, Mucous Membr. Moist/[place] Neck: Supple, Trachea Midline Lungs: Decreased Breath Sounds Cardiovascular: Regular Rate, Regular Rhythm GI/Abdominal Exam: Other (Patient has a wound VAC in place) - Problem List Review Problem List Initiated/Reviewed/Updated: Yes - My Orders Last 24 Hours: My Active Orders 10/03/17 11:15 Docusate Sodium/Sennosides [Senna Plus] 1 tab PO DAILY 10/03/17 14:36 Cardiac Monitoring Discontinue [RC] Click to Edit 10/03/17 16:55 Sodium Chloride 0.9% [Saline Flush] 10 ml FLUSH ASDIRECTED PRN Saline Lock Insert [OM.PC] Routine 10/05/17 08:00 Potassium Chloride [Klor-Con 10] 20 meq PO WITHBREAKFAST 10/05/17 10:16 BASIC METABOLIC PANEL,BMP [CHEM] Routine - Plan Plan:: #. Systemic inflammatory response syndrome Patient presented with subjective fever, and was found to have leukocytosis white count of 13,000. Reason for this is not obvious. Differential diagnosis includes infection. CT scan of the abdomen showed fluid collection around the site of recent surgery. Significance is unclear, could be a seroma or an evolving abscess #. Elevated digoxin level serum digoxin was elevated up to 2.1 Digoxin has been stopped #. Acute renal failure Serum creatinine was elevated up to 1.9 Resolved #. Status post recent abdominal surgery Patient had right hemicolectomy Patient is to has a wound VAC in place Has fluid collection around the surgical site. Could be a seroma but also could be an evolving abscess #. Atrial fibrillation patient is in sinus rhythm at this time The patient was on digoxin, metoprolol, and amiodarone Atrial fibrillation has been very difficult to control Digoxin has been stopped #. Hypokalemia Serum potassium is down to 3.2 Plan: Serum potassium is low down to 3.2 I will go ahead and give potassium chloride 40 mEq now Start patient on scheduled potassium chloride 20 mEq daily Obtain repeat basic metabolic panel Incentive spirometry and encourage use Trazodone for insomnia
[2017-10-04] MEDS: traZODone 50 MG Tab PO SCH (20:57)
[2017-10-05] MEDS: Sodium Chloride 0.9% 10 ML Syringe FLUSH PRN (01:48)
[2017-10-05] MEDS: Piperacillin/Tazobactam 3.375 GM in Sodium Chloride 0.9% 100 ML IV SCH ×4 (01:48→20:09)
[2017-10-05] MEDS: Pantoprazole 40 MG Tab.CR PO SCH (05:22)
[2017-10-05 06:40] LABS: CHLORIDE,CL 102 mmol/L (98-109); SODIUM,NA 140 mmol/L (138-146)
[2017-10-05] MEDS: Tamsulosin 0.4 MG Cap.ER PO SCH (09:37)
[2017-10-05] MEDS: Metoprolol Tartrate 50 MG Tab PO SCH ×2 (09:38→20:50)
[2017-10-05] MEDS: Potassium Chloride 10 MEQ Tab.ER PO SCH (09:39)
[2017-10-05] MEDS: Amiodarone 200 MG Tab PO SCH ×2 (09:40→20:49)
[2017-10-05] MEDS: Enoxaparin 40 MG/0.4 ML Syringe SUBCUT SCH (09:40)
[2017-10-05] MEDS: Aspirin 81 MG Tab.Chew PO SCH (09:40)
--- NOTE | 2017-10-05 10:36 | PCM.PN ---
- General Info Date of Service: 10/05/17 Admission Dx/Problem (Free Text): The patient is an 86-year-old man with complex medical history including coronary artery disease and atrial fibrillation. He recently underwent surgery for right colon cancer, had right adilson-colectomy. He was admitted this time because of fever, chills and generalized weakness. CT scan of the abdomen suggested fluid collection around the site of recent surgery , possibly a seroma versus evolving abscess. Patient was started on intravenous antibiotics. Digoxin level was also found to be elevated on admission and this has improved. Subjective Update: The patient has no new complaints this morning. Yesterday evening, fever of 38.3C was recorded Functional Status: Reports: Pain Controlled - Review of Systems General: Reports: Fever HEENT: Reports: No Symptoms Pulmonary: Reports: No Symptoms Cardiovascular: Reports: No Symptoms Gastrointestinal: Reports: No Symptoms Genitourinary: Reports: No Symptoms Musculoskeletal: Reports: No Symptoms Skin: Reports: No Symptoms - Patient Data Vitals - Most Recent: Last Vital Signs Temp 37.1 C 10/05/17 08:00 Pulse 89 10/05/17 09:38 Resp 20 10/05/17 08:00 BP 127/56 L 10/05/17 09:38 Pulse Ox 95 10/05/17 08:00 Weight - Most Recent: 91.172 kg I&O - Last 24 Hours: Intake & Output 10/04/17 10/05/17 10/05/17 22:59 06:59 14:59 Intake Total 400 300 100 Output Total 950 Balance 400 -650 100 Lab Results Last 24 Hours: Laboratory Results - last 24 hr 10/05/17 Range/Units 05:58 Sodium 140 (138-146) mmol/L Potassium 4.0 (3.5-4.9) mmol/L Chloride 102 (98-109) mmol/L Carbon Dioxide 25 (24-29) mmol/L Anion Gap 17.0 BUN 10 (8-26) mg/dL Creatinine 0.7 (0.6-1.3) mg/dL Est Cr Clr Drug Dosing 83.14 mL/min Estimated GFR (MDRD) > 60 Glucose 92 (70-105) mg/dL Calcium Pedro Results Last 24 Hours: Microbiology 09/29/17 18:00 Aerobic Blood Culture - Final Blood NO GROWTH AFTER 5 DAYS Anaerobic Blood Culture - Final NO GROWTH AFTER 5 DAYS Med Orders - Current: Current Medications Acetaminophen (Tylenol) 650 mg PO Q4H PRN PRN Reason: Pain (Mild 1-3)/fever Last Admin: 10/04/17 20:15 Dose: 650 mg Amiodarone HCl (Cordarone) 200 mg PO BID [facility] Last Admin: 10/05/17 09:40 Dose: 200 mg Aspirin (Aspirin) 162 mg PO DAILY [facility] Last Admin: 10/05/17 09:40 Dose: 162 mg Docusate Sodium (Colace) 100 mg PO BID PRN PRN Reason: Constipation Last Admin: 10/03/17 11:54 Dose: 100 mg Enoxaparin Sodium (Lovenox) 40 mg SUBCUT DAILY [facility] Last Admin: 10/05/17 09:40 Dose: 40 mg Piperacillin Sod/Tazobactam (Sod 3.375 gm/ Sodium Chloride) 100 mls @ 200 mls/ hr IV Q6H [facility] Last Infusion: 10/05/17 08:55 Dose: Infused Metoprolol Tartrate (Lopressor) 100 mg PO BID [facility] Last Admin: 10/05/17 09:38 Dose: 100 mg Refresh Optive Own (Med) 0 each EYEBOTH ASDIRECTED PRN PRN Reason: Dry Eyes Last Admin: 10/03/17 20:59 Dose: 1 each Ondansetron HCl (Zofran) 4 mg IVPUSH Q4H PRN PRN Reason: Nausea/Vomiting Pantoprazole Sodium (Protonix) 40 mg PO ACBRK [facility] Last Admin: 10/05/17 05:22 Dose: 40 mg Potassium Chloride (Klor-Con 10) 20 meq PO WITHBREAKFAST [facility] Last Admin: 10/05/17 09:39 Dose: 20 meq Senna/Docusate Sodium (Senna Plus) 1 tab PO DAILY [facility] Last Admin: 10/05/17 09:40 Dose: 1 tab Sodium Chloride (Saline Flush) 10 ml FLUSH ASDIRECTED PRN PRN Reason: Keep Vein Open Last Admin: 10/05/17 01:48 Dose: 10 ml Tamsulosin HCl (Flomax) 0.4 mg PO DAILY [facility] Last Admin: 10/05/17 09:37 Dose: 0.4 mg Trazodone HCl (Trazodone) 100 mg PO BEDTIME [facility] Discontinued Medications Atenolol (Tenormin) 25 mg PO DAILY [facility] Digoxin (Lanoxin) 125 mcg PO DAILY [facility] Last Admin: 10/03/17 11:41 Dose: Not Given Enoxaparin Sodium (Lovenox) 30 mg SUBCUT DAILY [facility] Last Admin: 10/02/17 08:51 Dose: 30 mg Sodium Chloride (Normal Saline) 500 mls @ 500 mls/hr IV .BOLUS [facility] Last Admin: 09/29/17 17:20 Dose: 500 mls/hr Sodium Chloride (Normal Saline) 1,000 mls @ 125 mls/hr IV ASDIRECTED [facility] Last Admin: 10/01/17 05:48 Dose: 125 mls/hr Piperacillin Sod/Tazobactam (Sod 2.25 gm/ Sodium Chloride) 50 mls @ 100 mls/hr IV Q6HR [facility] Last Admin: 09/29/17 21:37 Dose: Not Given Metronidazole 500 mg/ Premix 100 mls @ 100 mls/hr IV Q8H [facility] Last Admin: 10/02/17 08:46 Dose: 100 mls/hr Sodium Chloride (Normal Saline) 1,000 mls @ 75 mls/hr IV ASDIRECTED [facility] Last Admin: 10/03/17 05:54 Dose: 75 mls/hr Potassium Chloride (Klor-Con 10) 40 meq PO ONETIME ONE Stop: 10/01/17 07:41 Last Admin: 10/01/17 09:00 Dose: 40 meq Potassium Chloride (Klor-Con 10) 40 meq PO ONETIME ONE Stop: 10/01/17 20:45 Last Admin: 10/01/17 23:14 Dose: 40 meq Potassium Chloride (Klor-Con 10) 40 meq PO ONETIME ONE Stop: 10/04/17 09:37 Last Admin: 10/04/17 12:27 Dose: 40 meq Trazodone HCl (Trazodone) 50 mg PO BEDTIME [facility] Last Admin: 10/04/17 20:57 Dose: 50 mg - Exam General: Alert, Oriented HEENT: Pupils Equal Neck: Supple Lungs: Clear to Auscultation Cardiovascular: Regular Rate GI/Abdominal Exam: Normal Bowel Sounds, Other (Wound VAC attached to surgical wound; left flank lipoma?) - Problem List Review Problem List Initiated/Reviewed/Updated: Yes - My Orders Last 24 Hours: My Active Orders 10/05/17 10:17 C-REACTIVE PROTEIN [CHEM] Routine CBC WITH AUTO DIFF [HEME] Routine ESR [SEDIMENTATION RATE MANUAL] [HEME] Routine - Plan Plan:: #. Fever Patient presented with subjective fever, and was found to have leukocytosis white count of 13,000 on admission. Reason for this is not obvious. Differential diagnosis includes infection. CT scan of the abdomen showed fluid collection around the site of recent surgery. Significance is unclear, could be a seroma or an evolving abscess White blood cell count has returned to normal since admission on start of antibiotics. However patient has had a recurrent fever last night [10/04]. Last elevated temperature was on 09/30. Blood cultures have been negative, Day 5 Check CBC, ESR, CRP Monitor vital signs closely If patient remains afebrile, we'll recommend completing 14 days of IV Zosyn #. Acute renal failure, resolved Serum creatinine was elevated up to 1.9 on admission Creatinine 0.7 today Resolved #. Status post recent abdominal surgery Patient had right hemicolectomy Patient is to has a wound VAC in place Has fluid collection around the surgical site. Could be a seroma but also could be an evolving abscess Continue IV Zosyn #. Atrial fibrillation patient is in sinus rhythm at this time The patient was on digoxin, metoprolol, and amiodarone Atrial fibrillation has been very difficult to control Digoxin has been stopped #. Hypokalemia Resolved Potassium 4.0 today # Dispo Transfer to swing bed tomorrow for completion of IV antibiotics
[2017-10-05] MEDS: REFRESH OPTIVE EYEBOTH PRN ×2 (11:28→19:16)
[2017-10-05] MEDS ORDERED: Iopamidol 612 MG/ML 100 ML Bottle IVPUSH ONE (15:27)
--- NOTE | 2017-10-05 16:48 | CT ---
Clinical history: 86-year-old 201 pound male with a history of prostate and colon cancer (right hemic olectomy and appendectomy September 2017) who was reported to have "worrisome nodular growth right lower l obe" on CT scan chest June 2015 (compared to October 2014 this ex-smoker) hospitalized now with fever o f unknown origin i.e. source of sepsis of unknown. Scan technique: Volume acquisition of data from the abdomen and pelvis obtained without oral contrast but during the intravenous administration 100 cc nonionic Isovue contrast (2 cc/s via injector) madelyn e patient was lying supine on the Siemens multi slice scanner [facility]. All data archived in the PACS system for storage, reformatting and study. Interpretation: Abnormal. 1. Total Right hip prosthesis. Extensive aortoiliac surgical graft. Prostatectomy. Dense calcificatio ns aortic root/coronary arteries. 2. Large dependent bibasilar subpulmonic pleural fluid accumulation (increased) with underlying bilat eral, posterior segment, lower lobe atelectasis or infiltrates. Normal cardiac silhouette. No pericar dial effusion. Tiny nodule periphery of the right lower lobe. 3. Gallbladder, liver, stomach, pancreas, spleen, and adrenal glands unremarkable. 4. Isolated tiny 1.5cm exophytic cyst upper pole right kidney. Large 3.5 cm cyst lateral midpole left kidney. No signs of solid renal cortical mass lesion, nephrolithiasis or obstructive uropathy. Surgi maria antonia clips in the pelvis consistent with prostatectomy. 5. Open wound with drain RLQ abdomen. *Chronic ileus and free intraperitoneal fluid (ascites) volume increased. Sigmoid diverticula. No new sign of pelvic or abdominal mass (abscess) lesion, mechanical bowel obstruction, mesenteric/retroperitoneal lymphadenopathy or free intraperitoneal air. CONCLUSION: Increased dependent bibasilar pleural effusions with underlying atelectasis or infiltrate s. New ascites since 30 September 2017 exam (anastomotic suture dehiscence or breakdown?). Surgeries: Aortic graft, total right hip prosthesis, prostatectomy and wound drain RLQ. Partial right colectomy.
[2017-10-05] MEDS ORDERED: traZODone 50 MG Tab PO SCH (21:00)
[2017-10-06] MEDS: Piperacillin/Tazobactam 3.375 GM in Sodium Chloride 0.9% 100 ML IV SCH ×2 (01:54→09:22)
[2017-10-06] MEDS: Pantoprazole 40 MG Tab.CR PO SCH (06:09)
[2017-10-06 07:13] VITALS: BP 118/49
[2017-10-06] MEDS: REFRESH OPTIVE EYEBOTH PRN (07:20)
[2017-10-06] MEDS: Aspirin 81 MG Tab.Chew PO SCH (09:27)
[2017-10-06] MEDS: Potassium Chloride 10 MEQ Tab.ER PO SCH (09:27)
[2017-10-06] MEDS: Tamsulosin 0.4 MG Cap.ER PO SCH (09:28)
[2017-10-06] MEDS: Amiodarone 200 MG Tab PO SCH (09:28)
[2017-10-06] MEDS: Metoprolol Tartrate 50 MG Tab PO SCH (09:29)
[2017-10-06] MEDS: Enoxaparin 40 MG/0.4 ML Syringe SUBCUT SCH (09:31)
--- NOTE | 2017-10-06 10:44 | PCM.DCSUM1 ---
Discharge Summary - Hospital Course Free Text/Narrative:: The patient is an 86-year-old man with complex medical history including coronary artery disease and atrial fibrillation. He recently underwent surgery for right colon cancer, had right adilson-colectomy. He was admitted this time because of fever, chills and generalized weakness. CT scan of the abdomen suggested fluid collection around the site of recent surgery , possibly a seroma versus evolving abscess. Patient was started on intravenous antibiotics. Digoxin level was also found to be elevated on admission and this has improved. Repeat CT scan did not show any abscess, it did show pleural effusion and ascites, likely from third spacing/deconditioning. Patient has no shortness of breath. We'll transfer patient to swing bed to receive 1 more week of antibiotics, and then subsequent discharge home Diagnosis: Stroke: No Modified Odd Scale: No Symptoms at All Modified Valarie Scale Score: 0 - Discharge Data Discharge Date: 10/06/17 Discharge Disposition: DC/Tfer W/I Hosp To [place] [id number] Condition: Good - Patient Summary/Data Consults: Consultations 10/02/17 10:23 OT Evaluation and Treatment [CONS] Routine 10/02/17 10:24 PT Evaluation and Treatment [CONS] Routine - Patient Instructions Diet: Regular Diet as Tolerated - Discharge Plan Home Medications: Home Meds Aspirin 162 mg PO DAILY 02/04/15 [History] Multivitamin [Multivitamins] 1 each PO DAILY 02/04/15 [History] Simvastatin 20 mg PO DAILY 02/04/15 [History] Tamsulosin [Tamsulosin 24 Hr] 0.4 mg PO DAILY 02/04/15 [History] Vitamin E 400 unit PO DAILY 02/04/15 [History] Pantoprazole [ProTONIX] 40 mg PO DAILY 09/26/16 [History] Garlic 100 mg PO DAILY 09/27/16 [History] Amiodarone [Cordarone] 200 mg PO BID 09/29/17 [History] Digoxin [Lanoxin] 0.25 mg PO DAILY 09/29/17 [History] Metoprolol Tartrate [Lopressor] 100 mg PO BID 09/29/17 [History] - Discharge Summary/Plan Comment DC Time >30 min.: Yes - Patient Data Vitals - Most Recent: Last Vital Signs Temp 37.4 C 10/06/17 08:00 Pulse 74 10/06/17 09:29 Resp 16 10/06/17 08:00 BP 118/49 L 10/06/17 09:29 Pulse Ox 94 L 10/06/17 08:00 Weight - Most Recent: 91.172 kg I&O - Last 24 hours: Intake & Output 10/05/17 10/06/17 10/06/17 22:59 06:59 14:59 Intake Total 310 106 100 Balance 310 106 100 Lab Results - Last 24 hrs: Laboratory Results - last 24 hr 10/05/17 10/05/17 Range/Units 05:58 05:58 WBC 8.6 (5.0-10.0) 10^3/uL RBC 3.15 L (4.6-6.2) 10^6/uL Hgb 9.3 L (14.0-18.0) g/dL Hct 28.3 L (40.0-54.0) % MCV 89.8 (80-100) fL MCH 29.5 (27.0-34.0) pg MCHC 32.9 L (33.0-35.0) g/dL Plt Count 260 (150-450) 10^3/uL Neut % (Auto) 65.3 (42.2-75.2) % Lymph % (Auto) 26.3 (20.5-50.1) % Wolfe % (Auto) 7.6 (2-8) % Eos % (Auto) 0.7 L (1.0-3.0) % Baso % (Auto) 0.1 (0.0-1.0) % Add Manual Diff Yes Neutrophils % (Manual) 61 (42-75) % Band Neutrophils % 8 % Lymphocytes % (Manual) 24 (20-50) % Monocytes % (Manual) 6 (2-8) % Eosinophils % (Manual) 1 (1-3) % ESR 86 H (0-15) mm/hr C-Reactive Protein 14.2 H (0.0-1.3) mg/dL Med Orders - Current: Current Medications Acetaminophen (Tylenol) 650 mg PO Q4H PRN PRN Reason: Pain (Mild 1-3)/fever Last Admin: 10/04/17 20:15 Dose: 650 mg Amiodarone HCl (Cordarone) 200 mg PO BID [facility] Last Admin: 10/06/17 09:28 Dose: 200 mg Aspirin (Aspirin) 162 mg PO DAILY [facility] Last Admin: 10/06/17 09:27 Dose: 162 mg Docusate Sodium (Colace) 100 mg PO BID PRN PRN Reason: Constipation Last Admin: 10/03/17 11:54 Dose: 100 mg Enoxaparin Sodium (Lovenox) 40 mg SUBCUT DAILY [facility] Last Admin: 10/06/17 09:31 Dose: 40 mg Piperacillin Sod/Tazobactam (Sod 3.375 gm/ Sodium Chloride) 100 mls @ 200 mls/ hr IV Q6H [facility] Last Infusion: 10/06/17 10:12 Dose: Infused Metoprolol Tartrate (Lopressor) 100 mg PO BID [facility] Last Admin: 10/06/17 09:29 Dose: 100 mg Refresh Optive Own (Med) 0 each EYEBOTH ASDIRECTED PRN PRN Reason: Dry Eyes Last Admin: 10/06/17 07:20 Dose: 1 each Ondansetron HCl (Zofran) 4 mg IVPUSH Q4H PRN PRN Reason: Nausea/Vomiting Pantoprazole Sodium (Protonix) 40 mg PO ACBRK [facility] Last Admin: 10/06/17 06:09 Dose: 40 mg Potassium Chloride (Klor-Con 10) 20 meq PO WITHBREAKFAST [facility] Last Admin: 10/06/17 09:27 Dose: 20 meq Senna/Docusate Sodium (Senna Plus) 1 tab PO DAILY [facility] Last Admin: 10/06/17 09:35 Dose: Not Given Sodium Chloride (Saline Flush) 10 ml FLUSH ASDIRECTED PRN PRN Reason: Keep Vein Open Last Admin: 10/05/17 01:48 Dose: 10 ml Tamsulosin HCl (Flomax) 0.4 mg PO DAILY [facility] Last Admin: 10/06/17 09:28 Dose: 0.4 mg Trazodone HCl (Trazodone) 100 mg PO BEDTIME [facility] Last Admin: 10/05/17 20:49 Dose: 100 mg Discontinued Medications Atenolol (Tenormin) 25 mg PO DAILY [facility] Digoxin (Lanoxin) 125 mcg PO DAILY [facility] Last Admin: 10/03/17 11:41 Dose: Not Given Enoxaparin Sodium (Lovenox) 30 mg SUBCUT DAILY [facility] Last Admin: 10/02/17 08:51 Dose: 30 mg Sodium Chloride (Normal Saline) 500 mls @ 500 mls/hr IV .BOLUS [facility] Last Admin: 09/29/17 17:20 Dose: 500 mls/hr Sodium Chloride (Normal Saline) 1,000 mls @ 125 mls/hr IV ASDIRECTED [facility] Last Admin: 10/01/17 05:48 Dose: 125 mls/hr Piperacillin Sod/Tazobactam (Sod 2.25 gm/ Sodium Chloride) 50 mls @ 100 mls/hr IV Q6HR [facility] Last Admin: 09/29/17 21:37 Dose: Not Given Metronidazole 500 mg/ Premix 100 mls @ 100 mls/hr IV Q8H [facility] Last Admin: 10/02/17 08:46 Dose: 100 mls/hr Sodium Chloride (Normal Saline) 1,000 mls @ 75 mls/hr IV ASDIRECTED [facility] Last Admin: 10/03/17 05:54 Dose: 75 mls/hr Iopamidol (Isovue-300 (61%)) 100 ml IVPUSH ONETIME ONE Stop: 10/05/17 15:28 Last Admin: 10/05/17 15:56 Dose: 100 ml Potassium Chloride (Klor-Con 10) 40 meq PO ONETIME ONE Stop: 10/01/17 07:41 Last Admin: 10/01/17 09:00 Dose: 40 meq Potassium Chloride (Klor-Con 10) 40 meq PO ONETIME ONE Stop: 10/01/17 20:45 Last Admin: 10/01/17 23:14 Dose: 40 meq Potassium Chloride (Klor-Con 10) 40 meq PO ONETIME ONE Stop: 10/04/17 09:37 Last Admin: 10/04/17 12:27 Dose: 40 meq Trazodone HCl (Trazodone) 50 mg PO BEDTIME [facility] Last Admin: 10/04/17 20:57 Dose: 50 mg
== END 2017-10-06 10:02 | disposition swing bed (61) | DRG 863 ==
LOC: DL.MS 17:07 → UNDOADMIN 17:07 → DL.MS 17:35
PROVIDERS: ADMIT Internal Medicine; ATTEND Internal Medicine
DX: K68.11 Postprocedural retroperitoneal abscess (principal); K91.872 Postprocedural seroma of a digestive system organ or structure following a digestive system procedure; C18.2 Malignant neoplasm of ascending colon; N17.9 Acute kidney failure, unspecified; Y83.8 Other surgical procedures as the cause of abnormal reaction of the patient, or of later complication, without mention of misadventure at the time of the procedure; I25.10 Atherosclerotic heart disease of native coronary artery without angina pectoris; I48.91 Unspecified atrial fibrillation; E78.5 Hyperlipidemia, unspecified; I10 Essential (primary) hypertension; G62.9 Polyneuropathy, unspecified; T46.0X5A Adverse effect of cardiac-stimulant glycosides and drugs of similar action, initial encounter; E86.0 Dehydration; E87.6 Hypokalemia; G47.00 Insomnia, unspecified; R53.1 Weakness; Z88.2 Allergy status to sulfonamides; Z91.040 Latex allergy status; Z79.82 Long term (current) use of aspirin; Z79.899 Other long term (current) drug therapy; Z90.49 Acquired absence of other specified parts of digestive tract
CPT/HCPCS: 36415; 74176; 74177; 80048; 80162; 81001; 85025; 85027; 85651; 86140; 87040; 87086; 97110-GP; 97116-GP; 97162-GP; 97165-GO; 97530-GO; A9270-GY; J1650; J2543; J7030; J7040; J7050; Q9967

== ENCOUNTER 2017-10-06 10:01 | Inpatient (IN) | payer MEDICARE, BC ==
[2017-10-06] MEDS ORDERED: Acetaminophen 325 MG Tab PO PRN (10:33)
[2017-10-06] MEDS ORDERED: Docusate Sodium 100 MG Cap PO PRN (10:33)
[2017-10-06] MEDS ORDERED: Sodium Chloride 0.9% 10 ML Syringe FLUSH PRN (10:33)
[2017-10-06] MEDS ORDERED: Ondansetron 4 MG/2 ML SDV IVPUSH PRN (10:33)
--- NOTE | 2017-10-06 10:50 | PCM.HP ---
H&P History of Present Illness - General Date of Service: 10/06/17 Admit Problem/Dx: Admission Diagnosis/Problem Admission Diagnosis/Problem SIRS without acute organ dysfunction due to infectious process Source of Information: Patient History Limitations: Reports: No Limitations - History of Present Illness Initial Comments - Free Text/Narative: The patient is an 86-year-old man with complex medical history including coronary artery disease and atrial fibrillation. He recently underwent surgery for right colon cancer, had right adilson-colectomy. He was admitted with fever, chills and generalized weakness. CT scan of the abdomen suggested fluid collection around the site of recent surgery, possibly a seroma versus evolving abscess. Patient was started on intravenous antibiotics. Digoxin level was also found to be elevated on admission and this has improved. Repeat CT scan did not show any abscess, it did show pleural effusion and ascites, likely from third spacing/deconditioning. Patient has no shortness of breath. We'll transfer patient to swing bed to receive 1 more week of antibiotics, and then subsequent discharge home - Related Data Allergies/Adverse Reactions: Allergies Allergy/AdvReac Type Severity Reaction Status Date / Time latex Allergy Unknown UNKNOWN Verified 09/29/17 23:09 SULFA Allergy Unknown Swelling Uncoded 09/29/17 23:09 Home Medications: Home Meds Aspirin 162 mg PO DAILY 02/04/15 [History] Multivitamin [Multivitamins] 1 each PO DAILY 02/04/15 [History] Simvastatin 20 mg PO DAILY 02/04/15 [History] Tamsulosin [Tamsulosin 24 Hr] 0.4 mg PO DAILY 02/04/15 [History] Vitamin E 400 unit PO DAILY 02/04/15 [History] Pantoprazole [ProTONIX] 40 mg PO DAILY 09/26/16 [History] Garlic 100 mg PO DAILY 09/27/16 [History] Amiodarone [Cordarone] 200 mg PO BID 09/29/17 [History] Digoxin [Lanoxin] 0.25 mg PO DAILY 09/29/17 [History] Metoprolol Tartrate [Lopressor] 100 mg PO BID 09/29/17 [History] Past Medical History HEENT History: Reports: Impaired Vision Cardiovascular History: Reports: CAD, High Cholesterol, Hypertension, Other ( See Below) Other Cardiovascular History: atrial tachycardia Gastrointestinal History: Reports: GERD, Other (See Below) Other Gastrointestinal History: acute perforated appendicitis. malignant neoplasm of ascending colon Neurological History: Reports: Neuropathy, Peripheral Other Neuro History: left upper and lower ext Oncologic (Cancer) History: Reports: Basal Cell Carcinoma, Prostate, Other (See Below) Dermatologic History: Reports: Other (See Below) Other Dermatologic History: psoriasis - Past Surgical History Cardiovascular Surgical History: Reports: Coronary Artery Stent Male Surgical History: Reports: Prostatectomy Musculoskeletal Surgical History: Reports: Hip Replacement, Shoulder Surgery, Other (See Below) Other Musculoskeletal Surgeries/Procedures:: wrist surgery Social & Family History - Family History Family Medical History: Noncontributory - Caffeine Use Caffeine Use: Reports: Coffee H&P Review of Systems - Review of Systems: Review Of Systems: See Below General: Reports: No Symptoms HEENT: Reports: No Symptoms Pulmonary: Reports: No Symptoms Cardiovascular: Reports: No Symptoms Gastrointestinal: Reports: Other (nursing staff noticed specks of bright red blood in stool, patient has a known history of hemorrhoids. Patient reports no rectal pain or discomfort.) Genitourinary: Reports: No Symptoms Exam - Exam Exam: See Below - Exam General: Alert, Oriented HEENT: Conjunctiva Clear Neck: Supple Lungs: Clear to Auscultation Cardiovascular: Regular Rate GI/Abdominal Exam: Normal Bowel Sounds Problem List Initiated/Reviewed/Updated: Yes Orders Last 24hrs: Active Orders 24 hr Category Date Time Status Admission Status [Patient Status] [ADT] Routine ADT 10/06/17 10:35 Active Patient Status [ADT] Routine ADT 10/06/17 10:33 Active Bedrest Bathroom Privileges [RC] ASDIRECTED Care 10/06/17 10:33 Active Cardiac Monitoring Discontinue [RC] Click to Edit Care 10/06/17 10:33 Active Intake and Output [RC] QSHIFT Care 10/06/17 10:33 Active Oxygen Therapy [RC] PRN Care 10/06/17 10:33 Active Ready for Discharge [RC] DAILY Care 10/06/17 10:33 Active VTE/DVT Education [RC] PER UNIT ROUTINE Care 10/06/17 10:33 Active Vital Signs [RC] QSHIFT Care 10/06/17 10:33 Active Wound Care [RC] DAILY Care 10/06/17 10:33 Active OT Evaluation and Treatment [CONS] Routine Cons 10/06/17 10:33 Active PT Evaluation and Treatment [CONS] Routine Cons 10/06/17 10:33 Active Regular Diet [DIET] Diet 10/06/17 Dinner Active Acetaminophen [Tylenol] Med 10/06/17 10:33 Ordered 650 mg PO Q4H PRN Amiodarone [Cordarone] Med 10/06/17 21:00 Ordered 200 mg PO BID Aspirin Med 10/07/17 09:00 Ordered 162 mg PO DAILY Docusate Sodium [Colace] Med 10/06/17 10:33 Ordered 100 mg PO BID PRN Docusate Sodium/Sennosides [Senna Plus] Med 10/07/17 09:00 Ordered 1 tab PO DAILY Enoxaparin [Lovenox] Med 10/07/17 09:00 Ordered 40 mg SUBCUT DAILY Metoprolol Tartrate [Lopressor] Med 10/06/17 21:00 Ordered 100 mg PO BID Non-Formulary Medication [NF Drug] Med 10/06/17 10:33 Ordered 0 each EYEBOTH ASDIRECTED PRN Ondansetron [Zofran] Med 10/06/17 10:33 Ordered 4 mg IVPUSH Q4H PRN Pantoprazole [ProTONIX] Med 10/07/17 06:00 Ordered 40 mg PO ACBRK Piperacillin/Tazobactam [Zosyn] 3.375 gm Med 10/06/17 14:00 Ordered Sodium Chloride 0.9% [Normal Saline] 100 ml IV Q6H Potassium Chloride [Klor-Con 10] Med 10/07/17 08:00 Ordered 20 meq PO WITHBREAKFAST Sodium Chloride 0.9% [Saline Flush] Med 10/06/17 10:33 Ordered 10 ml FLUSH ASDIRECTED PRN Sodium Chloride 0.9% [Saline Flush] Med 10/06/17 10:33 Ordered 10 ml FLUSH ASDIRECTED PRN Tamsulosin [Flomax] Med 10/07/17 09:00 Ordered 0.4 mg PO DAILY traZODone Med 10/06/17 21:00 Ordered 100 mg PO BEDTIME Saline Lock Insert [OM.PC] Routine Oth 10/06/17 10:33 Ordered Code Status [Resuscitation Status] Routine Resus Stat 10/06/17 10:39 Ordered Medication Orders Acetaminophen (Tylenol) 650 mg PO Q4H PRN PRN Reason: Pain (Mild 1-3)/fever Amiodarone HCl (Cordarone) 200 mg PO BID [facility] Aspirin (Aspirin) 162 mg PO DAILY [facility] Docusate Sodium (Colace) 100 mg PO BID PRN PRN Reason: Constipation Enoxaparin Sodium (Lovenox) 40 mg SUBCUT DAILY [facility] Piperacillin Sod/Tazobactam (Sod 3.375 gm/ Sodium Chloride) 100 mls @ 200 mls/ hr IV Q6H [facility] Metoprolol Tartrate (Lopressor) 100 mg PO BID [facility] Non-Formulary Medication (Nf Drug) 0 each EYEBOTH ASDIRECTED PRN PRN Reason: Dry Eyes Ondansetron HCl (Zofran) 4 mg IVPUSH Q4H PRN PRN Reason: Nausea/Vomiting Pantoprazole Sodium (Protonix) 40 mg PO ACBRK [facility] Potassium Chloride (Klor-Con 10) 20 meq PO WITHBREAKFAST [facility] Senna/Docusate Sodium (Senna Plus) 1 tab PO DAILY [facility] Sodium Chloride (Saline Flush) 10 ml FLUSH ASDIRECTED PRN PRN Reason: Keep Vein Open Sodium Chloride (Saline Flush) 10 ml FLUSH ASDIRECTED PRN PRN Reason: Keep Vein Open Tamsulosin HCl (Flomax) 0.4 mg PO DAILY [facility] Trazodone HCl (Trazodone) 100 mg PO BEDTIME [facility] Assessment/Plan Comment:: #. Fever, SIRS Patient presented with subjective fever, and was found to have leukocytosis white count of 13,000 on admission. White blood cell count has returned to normal since admission on start of antibiotics. Blood cultures have been negative, Day 5 Complete 14 days of IV Zosyn; has seven more days of antibiotics #. Status post recent abdominal surgery Patient had right hemicolectomy Patient is to has a wound VAC in place; Continue dressing #. Atrial fibrillation patient is in sinus rhythm at this time continue metoprolol, and amiodarone # Dispo Transfer to swing bed for completion of IV antibiotics
[2017-10-06] MEDS: Piperacillin/Tazobactam 3.375 GM in Sodium Chloride 0.9% 100 ML IV SCH ×3 (12:39→23:55)
[2017-10-06] MEDS: Sodium Chloride 0.9% 10 ML Syringe FLUSH PRN (17:52)
[2017-10-06] MEDS: traZODone 50 MG Tab PO SCH (20:25)
[2017-10-06] MEDS: Metoprolol Tartrate 50 MG Tab PO SCH (20:26)
[2017-10-06] MEDS: Amiodarone 200 MG Tab PO SCH (20:27)
[2017-10-07] MEDS: Piperacillin/Tazobactam 3.375 GM in Sodium Chloride 0.9% 100 ML IV SCH ×3 (06:04→17:58)
[2017-10-07] MEDS: Pantoprazole 40 MG Tab.CR PO SCH (06:05)
[2017-10-07] MEDS: Potassium Chloride 10 MEQ Tab.ER PO SCH (08:12)
[2017-10-07] MEDS: Amiodarone 200 MG Tab PO SCH ×2 (08:12→20:42)
[2017-10-07] MEDS: Tamsulosin 0.4 MG Cap.ER PO SCH (08:12)
[2017-10-07] MEDS: Metoprolol Tartrate 50 MG Tab PO SCH ×2 (08:13→20:38)
[2017-10-07] MEDS: Enoxaparin 40 MG/0.4 ML Syringe SUBCUT SCH (08:14)
[2017-10-07] MEDS: Aspirin 81 MG Tab.Chew PO SCH (08:14)
[2017-10-07] MEDS: REFRESH OPTIVE EYEBOTH PRN ×2 (17:46→23:56)
[2017-10-07] MEDS: traZODone 50 MG Tab PO SCH (20:42)
[2017-10-08] MEDS: Piperacillin/Tazobactam 3.375 GM in Sodium Chloride 0.9% 100 ML IV SCH ×6 (05:58→23:53)
[2017-10-08] MEDS: Pantoprazole 40 MG Tab.CR PO SCH (05:58)
[2017-10-08] MEDS: REFRESH OPTIVE EYEBOTH PRN ×4 (06:41→21:24)
[2017-10-08] MEDS: Enoxaparin 40 MG/0.4 ML Syringe SUBCUT SCH (09:18)
[2017-10-08] MEDS: Tamsulosin 0.4 MG Cap.ER PO SCH (09:19)
[2017-10-08] MEDS: Potassium Chloride 10 MEQ Tab.ER PO SCH (09:19)
[2017-10-08] MEDS: Aspirin 81 MG Tab.Chew PO SCH (09:19)
[2017-10-08] MEDS: Amiodarone 200 MG Tab PO SCH ×2 (09:19→21:01)
[2017-10-08] MEDS: Metoprolol Tartrate 50 MG Tab PO SCH ×2 (09:19→21:00)
[2017-10-08] MEDS: traZODone 50 MG Tab PO SCH (21:01)
[2017-10-09] MEDS: REFRESH OPTIVE EYEBOTH PRN (04:02)
[2017-10-09] MEDS: Piperacillin/Tazobactam 3.375 GM in Sodium Chloride 0.9% 100 ML IV SCH ×3 (06:19→18:25)
[2017-10-09] MEDS: Pantoprazole 40 MG Tab.CR PO SCH (06:20)
[2017-10-09] MEDS: Aspirin 81 MG Tab.Chew PO SCH (09:40)
[2017-10-09] MEDS: Potassium Chloride 10 MEQ Tab.ER PO SCH (09:40)
[2017-10-09] MEDS: Tamsulosin 0.4 MG Cap.ER PO SCH (09:41)
[2017-10-09] MEDS: Enoxaparin 40 MG/0.4 ML Syringe SUBCUT SCH (09:41)
[2017-10-09] MEDS: Amiodarone 200 MG Tab PO SCH ×2 (09:41→21:00)
[2017-10-09] MEDS: Sodium Chloride 0.9% 10 ML Syringe FLUSH PRN ×4 (13:33→19:29)
[2017-10-09] MEDS: Metoprolol Tartrate 50 MG Tab PO SCH ×2 (13:33→21:02)
[2017-10-09] MEDS: traZODone 50 MG Tab PO SCH (21:00)
[2017-10-10] MEDS: Piperacillin/Tazobactam 3.375 GM in Sodium Chloride 0.9% 100 ML IV SCH ×5 (00:10→23:48)
[2017-10-10] MEDS: REFRESH OPTIVE EYEBOTH PRN (03:56)
[2017-10-10] MEDS: Pantoprazole 40 MG Tab.CR PO SCH (06:18)
[2017-10-10] MEDS: Tamsulosin 0.4 MG Cap.ER PO SCH (09:07)
[2017-10-10] MEDS: Amiodarone 200 MG Tab PO SCH ×2 (09:07→20:53)
[2017-10-10] MEDS: Potassium Chloride 10 MEQ Tab.ER PO SCH (09:07)
[2017-10-10] MEDS: Aspirin 81 MG Tab.Chew PO SCH (09:07)
[2017-10-10] MEDS: Metoprolol Tartrate 50 MG Tab PO SCH ×2 (09:08→20:52)
[2017-10-10] MEDS: Enoxaparin 40 MG/0.4 ML Syringe SUBCUT SCH (09:08)
[2017-10-10] MEDS: traZODone 50 MG Tab PO SCH (20:54)
[2017-10-11] MEDS: Piperacillin/Tazobactam 3.375 GM in Sodium Chloride 0.9% 100 ML IV SCH ×3 (05:49→19:22)
[2017-10-11] MEDS: Pantoprazole 40 MG Tab.CR PO SCH (05:50)
[2017-10-11] MEDS: Aspirin 81 MG Tab.Chew PO SCH (09:50)
[2017-10-11] MEDS: Tamsulosin 0.4 MG Cap.ER PO SCH (09:50)
[2017-10-11] MEDS: Potassium Chloride 10 MEQ Tab.ER PO SCH (09:50)
[2017-10-11] MEDS: Metoprolol Tartrate 50 MG Tab PO SCH ×2 (09:51→20:33)
[2017-10-11] MEDS: Enoxaparin 40 MG/0.4 ML Syringe SUBCUT SCH (09:51)
[2017-10-11] MEDS: Amiodarone 200 MG Tab PO SCH ×2 (09:52→20:32)
[2017-10-11] MEDS: traZODone 50 MG Tab PO SCH (20:32)
[2017-10-12] MEDS: Piperacillin/Tazobactam 3.375 GM in Sodium Chloride 0.9% 100 ML IV SCH ×5 (00:34→23:59)
[2017-10-12] MEDS: Pantoprazole 40 MG Tab.CR PO SCH (05:57)
[2017-10-12] MEDS: Metoprolol Tartrate 50 MG Tab PO SCH ×2 (08:35→20:35)
[2017-10-12] MEDS: Potassium Chloride 10 MEQ Tab.ER PO SCH (08:36)
[2017-10-12] MEDS: Aspirin 81 MG Tab.Chew PO SCH (08:37)
[2017-10-12] MEDS: Amiodarone 200 MG Tab PO SCH ×2 (08:37→20:34)
[2017-10-12] MEDS: Tamsulosin 0.4 MG Cap.ER PO SCH (08:37)
[2017-10-12] MEDS: Enoxaparin 40 MG/0.4 ML Syringe SUBCUT SCH (08:55)
[2017-10-12] MEDS: traZODone 50 MG Tab PO SCH (20:34)
[2017-10-13] MEDS: Pantoprazole 40 MG Tab.CR PO SCH (06:02)
[2017-10-13] MEDS: Piperacillin/Tazobactam 3.375 GM in Sodium Chloride 0.9% 100 ML IV SCH ×3 (06:03→17:41)
[2017-10-13] MEDS: Metoprolol Tartrate 50 MG Tab PO SCH ×2 (08:46→21:59)
[2017-10-13] MEDS: Amiodarone 200 MG Tab PO SCH ×2 (08:46→21:58)
[2017-10-13] MEDS: Tamsulosin 0.4 MG Cap.ER PO SCH (08:46)
[2017-10-13] MEDS: Aspirin 81 MG Tab.Chew PO SCH (08:47)
[2017-10-13] MEDS: Potassium Chloride 10 MEQ Tab.ER PO SCH (08:47)
[2017-10-13] MEDS: Enoxaparin 40 MG/0.4 ML Syringe SUBCUT SCH (08:48)
[2017-10-13] MEDS: traZODone 50 MG Tab PO SCH (21:59)
[2017-10-14] MEDS: Sodium Chloride 0.9% 10 ML Syringe FLUSH PRN ×4 (00:22→19:00)
[2017-10-14] MEDS: Piperacillin/Tazobactam 3.375 GM in Sodium Chloride 0.9% 100 ML IV SCH ×4 (00:23→19:00)
[2017-10-14] MEDS: Pantoprazole 40 MG Tab.CR PO SCH (06:25)
[2017-10-14] MEDS: Potassium Chloride 10 MEQ Tab.ER PO SCH (09:46)
[2017-10-14] MEDS: Metoprolol Tartrate 50 MG Tab PO SCH ×2 (09:47→21:04)
[2017-10-14] MEDS: Aspirin 81 MG Tab.Chew PO SCH (09:47)
[2017-10-14] MEDS: Tamsulosin 0.4 MG Cap.ER PO SCH (09:47)
[2017-10-14] MEDS: Amiodarone 200 MG Tab PO SCH ×2 (09:48→21:04)
[2017-10-14] MEDS: Enoxaparin 40 MG/0.4 ML Syringe SUBCUT SCH (09:50)
[2017-10-14] MEDS: traZODone 50 MG Tab PO SCH (21:04)
[2017-10-15] MEDS: Sodium Chloride 0.9% 10 ML Syringe FLUSH PRN ×4 (00:05→20:07)
[2017-10-15] MEDS: Piperacillin/Tazobactam 3.375 GM in Sodium Chloride 0.9% 100 ML IV SCH ×5 (00:05→23:29)
[2017-10-15] MEDS: Pantoprazole 40 MG Tab.CR PO SCH (05:44)
[2017-10-15] MEDS: Tamsulosin 0.4 MG Cap.ER PO SCH (09:16)
[2017-10-15] MEDS: Potassium Chloride 10 MEQ Tab.ER PO SCH (09:16)
[2017-10-15] MEDS: Aspirin 81 MG Tab.Chew PO SCH (09:16)
[2017-10-15] MEDS: Metoprolol Tartrate 50 MG Tab PO SCH ×2 (09:17→20:35)
[2017-10-15] MEDS: Amiodarone 200 MG Tab PO SCH ×2 (09:17→20:35)
[2017-10-15] MEDS: Enoxaparin 40 MG/0.4 ML Syringe SUBCUT SCH (09:20)
[2017-10-15] MEDS: traZODone 50 MG Tab PO SCH (20:35)
[2017-10-16] MEDS: Pantoprazole 40 MG Tab.CR PO SCH (05:43)
[2017-10-16] MEDS: Piperacillin/Tazobactam 3.375 GM in Sodium Chloride 0.9% 100 ML IV SCH ×3 (05:48→19:16)
[2017-10-16] MEDS: Potassium Chloride 10 MEQ Tab.ER PO SCH (09:24)
[2017-10-16] MEDS: Metoprolol Tartrate 50 MG Tab PO SCH ×2 (09:25→20:42)
[2017-10-16] MEDS: Tamsulosin 0.4 MG Cap.ER PO SCH (09:25)
[2017-10-16] MEDS: Aspirin 81 MG Tab.Chew PO SCH (09:25)
[2017-10-16] MEDS: Amiodarone 200 MG Tab PO SCH ×2 (09:27→20:44)
[2017-10-16] MEDS: Enoxaparin 40 MG/0.4 ML Syringe SUBCUT SCH (09:27)
--- NOTE | 2017-10-16 10:07 | PCM.PN ---
- General Info Date of Service: 10/16/17 Admission Dx/Problem (Free Text): Admission Diagnosis/Problem Admission Diagnosis/Problem SIRS without acute organ dysfunction due to infectious process Subjective Update: The patient is an 86-year-old man with complex medical history including coronary artery disease and atrial fibrillation. He recently underwent surgery for right colon cancer, had right adilson-colectomy. He was admitted with fever, chills and generalized weakness. CT scan of the abdomen suggested fluid collection around the site of recent surgery, possibly a seroma versus evolving abscess. Patient was started on intravenous antibiotics. Digoxin level was also found to be elevated on admission and this has improved. Repeat CT scan did not show any abscess, it did show pleural effusion and ascites, likely from third spacing/deconditioning. Patient has no shortness of breath. Patient was transferred to swing bed on 10/06 to receive 1 more week of antibiotics, and then subsequent discharge home. He was seen tis morning and found to be doing well. No new complaints. Family however is concerned about his discharge home as there is no one home. He is still on IV abx. No fevers, chills. He is due for repeat CT abdomen this morning. CT scan machine is however out of order. He si scheduled to have it tomorrow. Functional Status: Reports: Pain Controlled - Review of Systems General: Reports: No Symptoms HEENT: Reports: No Symptoms Pulmonary: Reports: No Symptoms Cardiovascular: Reports: No Symptoms Gastrointestinal: Reports: No Symptoms Genitourinary: Reports: No Symptoms Musculoskeletal: Reports: No Symptoms Skin: Reports: No Symptoms Neurological: Reports: No Symptoms Psychiatric: Reports: No Symptoms - Patient Data Vitals - Most Recent: Last Vital Signs Temp 98.3 F 10/16/17 07:40 Pulse 75 10/16/17 09:25 Resp 20 10/16/17 07:40 BP 117/78 10/16/17 09:25 Pulse Ox 95 10/16/17 07:40 Weight - Most Recent: 209 lb I&O - Last 24 Hours: Intake & Output 10/15/17 10/16/17 10/16/17 22:59 06:59 14:59 Intake Total 475 200 Balance 475 200 Med Orders - Current: Current Medications Acetaminophen (Tylenol) 650 mg PO Q4H PRN PRN Reason: Pain (Mild 1-3)/fever Last Admin: 10/06/17 20:24 Dose: 650 mg Amiodarone HCl (Cordarone) 200 mg PO BID [facility] Last Admin: 10/16/17 09:27 Dose: 200 mg Aspirin (Aspirin) 162 mg PO DAILY [facility] Last Admin: 10/16/17 09:25 Dose: 162 mg Docusate Sodium (Colace) 100 mg PO BID PRN PRN Reason: Constipation Enoxaparin Sodium (Lovenox) 40 mg SUBCUT DAILY [facility] Last Admin: 10/16/17 09:27 Dose: 40 mg Piperacillin Sod/Tazobactam (Sod 3.375 gm/ Sodium Chloride) 100 mls @ 200 mls/ hr IV Q6H [facility] Last Admin: 10/16/17 05:48 Dose: 200 mls/hr Metoprolol Tartrate (Lopressor) 100 mg PO BID [facility] Last Admin: 10/16/17 09:25 Dose: 100 mg Ondansetron HCl (Zofran) 4 mg IVPUSH Q4H PRN PRN Reason: Nausea/Vomiting Pantoprazole Sodium (Protonix) 40 mg PO ACBRK [facility] Last Admin: 10/16/17 05:43 Dose: 40 mg Refresh Optive Own (Med) 0 each EYEBOTH ASDIRECTED PRN PRN Reason: Dry Eyes Last Admin: 10/10/17 03:56 Dose: 1 each Potassium Chloride (Klor-Con 10) 20 meq PO WITHBREAKFAST [facility] Last Admin: 10/16/17 09:24 Dose: 20 meq Senna/Docusate Sodium (Senna Plus) 1 tab PO DAILY [facility] Last Admin: 10/16/17 09:27 Dose: 1 tab Sodium Chloride (Saline Flush) 10 ml FLUSH ASDIRECTED PRN PRN Reason: Keep Vein Open Last Admin: 10/15/17 20:07 Dose: 10 ml Sodium Chloride (Saline Flush) 10 ml FLUSH ASDIRECTED PRN PRN Reason: Keep Vein Open Tamsulosin HCl (Flomax) 0.4 mg PO DAILY [facility] Last Admin: 10/16/17 09:25 Dose: 0.4 mg Trazodone HCl (Trazodone) 100 mg PO BEDTIME [facility] Last Admin: 10/15/17 20:35 Dose: 100 mg - Exam General: Alert, Oriented HEENT: Pupils Equal, Pupils Reactive, EOMI, Mucous Membr. Moist/[place] Neck: Supple Lungs: Clear to Auscultation, Normal Respiratory Effort Cardiovascular: Regular Rate, Regular Rhythm GI/Abdominal Exam: Normal Bowel Sounds, Soft, Non-Tender, No Organomegaly, No Distention, No Abnormal Bruit, No Mass, Pelvis Stable (Male) Exam: No Hernia, Normal Inspection, Normal Prostate, Circumcised Back Exam: Normal Inspection, Full Range of Motion Extremities: Normal Inspection, Normal Range of Motion, Non-Tender, No Pedal Edema, Normal Capillary Refill Skin: Warm, Dry, Intact Wound/Incisions: Healing Well Neurological: No New Focal Deficit Psy/Mental Status: Alert, Normal Affect, Normal Mood - Problem List Review Problem List Initiated/Reviewed/Updated: Yes - My Orders Last 24 Hours: My Active Orders 10/16/17 Lunch Clear Liquid Diet [DIET] - Plan Plan:: #. Fever, SIRS Patient presented with subjective fever, and was found to have leukocytosis white count of 13,000 on admission. White blood cell count has returned to normal since admission on start of antibiotics. Blood cultures were negative Completed 21 days of IV abx will d/c IV abx today #. Status post recent abdominal surgery Patient had right hemicolectomy Continue dressing #. Atrial fibrillation patient is in sinus rhythm at this time continue metoprolol, and amiodarone # Dispo To discharge home tomorrow
[2017-10-16] MEDS: Sodium Chloride 0.9% 10 ML Syringe FLUSH PRN (19:17)
[2017-10-16] MEDS: traZODone 50 MG Tab PO SCH (20:43)
[2017-10-17] MEDS: Piperacillin/Tazobactam 3.375 GM in Sodium Chloride 0.9% 100 ML IV SCH ×2 (00:26→06:15)
[2017-10-17] MEDS: Pantoprazole 40 MG Tab.CR PO SCH (06:15)
[2017-10-17] MEDS: Aspirin 81 MG Tab.Chew PO SCH (08:55)
[2017-10-17] MEDS: Amiodarone 200 MG Tab PO SCH ×2 (08:55→20:48)
[2017-10-17] MEDS: Tamsulosin 0.4 MG Cap.ER PO SCH (08:55)
[2017-10-17] MEDS: Potassium Chloride 10 MEQ Tab.ER PO SCH (08:55)
[2017-10-17] MEDS: Enoxaparin 40 MG/0.4 ML Syringe SUBCUT SCH (08:56)
[2017-10-17] MEDS: Metoprolol Tartrate 50 MG Tab PO SCH ×2 (10:12→20:46)
[2017-10-17] MEDS: traZODone 50 MG Tab PO SCH (20:44)
[2017-10-18] MEDS: Pantoprazole 40 MG Tab.CR PO SCH (06:43)
[2017-10-18] MEDS: Amiodarone 200 MG Tab PO SCH ×2 (09:18→23:15)
[2017-10-18] MEDS: Potassium Chloride 10 MEQ Tab.ER PO SCH (09:18)
[2017-10-18] MEDS: Aspirin 81 MG Tab.Chew PO SCH (09:18)
[2017-10-18] MEDS: Enoxaparin 40 MG/0.4 ML Syringe SUBCUT SCH (09:19)
[2017-10-18] MEDS: Tamsulosin 0.4 MG Cap.ER PO SCH (09:19)
[2017-10-18] MEDS: Metoprolol Tartrate 50 MG Tab PO SCH ×2 (11:07→23:15)
[2017-10-18] MEDS: traZODone 50 MG Tab PO SCH (23:16)
[2017-10-19] MEDS: Pantoprazole 40 MG Tab.CR PO SCH (07:29)
[2017-10-19] MEDS: Aspirin 81 MG Tab.Chew PO SCH (08:50)
[2017-10-19] MEDS: Potassium Chloride 10 MEQ Tab.ER PO SCH (08:51)
[2017-10-19] MEDS: Amiodarone 200 MG Tab PO SCH ×2 (08:51→21:22)
[2017-10-19] MEDS: Tamsulosin 0.4 MG Cap.ER PO SCH (08:51)
[2017-10-19] MEDS: Metoprolol Tartrate 50 MG Tab PO SCH ×2 (08:52→21:23)
[2017-10-19] MEDS: Enoxaparin 40 MG/0.4 ML Syringe SUBCUT SCH (08:53)
[2017-10-19] MEDS: traZODone 50 MG Tab PO SCH (21:23)
[2017-10-20] MEDS: Pantoprazole 40 MG Tab.CR PO SCH (05:28)
[2017-10-20] MEDS: Enoxaparin 40 MG/0.4 ML Syringe SUBCUT SCH (10:25)
[2017-10-20] MEDS: Aspirin 81 MG Tab.Chew PO SCH (10:26)
[2017-10-20] MEDS: Amiodarone 200 MG Tab PO SCH ×2 (10:27→20:39)
[2017-10-20] MEDS: Potassium Chloride 10 MEQ Tab.ER PO SCH (10:27)
[2017-10-20] MEDS: Tamsulosin 0.4 MG Cap.ER PO SCH (10:27)
[2017-10-20] MEDS: Metoprolol Tartrate 50 MG Tab PO SCH ×2 (10:28→20:39)
[2017-10-20] MEDS: traZODone 50 MG Tab PO SCH (20:38)
[2017-10-21] MEDS: Pantoprazole 40 MG Tab.CR PO SCH (06:03)
[2017-10-21] MEDS: Potassium Chloride 10 MEQ Tab.ER PO SCH (09:13)
[2017-10-21] MEDS: Amiodarone 200 MG Tab PO SCH ×2 (09:13→21:21)
[2017-10-21] MEDS: Tamsulosin 0.4 MG Cap.ER PO SCH (09:14)
[2017-10-21] MEDS: Metoprolol Tartrate 50 MG Tab PO SCH ×2 (09:14→21:21)
[2017-10-21] MEDS: Enoxaparin 40 MG/0.4 ML Syringe SUBCUT SCH (09:14)
[2017-10-21] MEDS: Aspirin 81 MG Tab.Chew PO SCH (09:14)
[2017-10-21] MEDS: REFRESH OPTIVE EYEBOTH PRN (11:58)
[2017-10-21] MEDS: traZODone 50 MG Tab PO SCH (21:21)
[2017-10-21] MEDS ORDERED: Magnesium Citrate Solution 296 ML Bottle PO ONE (23:55)
[2017-10-22] MEDS: Pantoprazole 40 MG Tab.CR PO SCH (06:27)
[2017-10-22] MEDS: Aspirin 81 MG Tab.Chew PO SCH (09:14)
[2017-10-22] MEDS: Potassium Chloride 10 MEQ Tab.ER PO SCH (09:14)
[2017-10-22] MEDS: Tamsulosin 0.4 MG Cap.ER PO SCH (09:15)
[2017-10-22] MEDS: Amiodarone 200 MG Tab PO SCH ×2 (09:15→21:45)
[2017-10-22] MEDS: Enoxaparin 40 MG/0.4 ML Syringe SUBCUT SCH (09:15)
[2017-10-22] MEDS: Metoprolol Tartrate 50 MG Tab PO SCH (09:30)
[2017-10-22] MEDS: traZODone 50 MG Tab PO SCH (21:45)
[2017-10-23] MEDS: Pantoprazole 40 MG Tab.CR PO SCH (06:01)
[2017-10-23 08:03] VITALS: BP 105/61
[2017-10-23] MEDS: Aspirin 81 MG Tab.Chew PO SCH (09:20)
[2017-10-23] MEDS: Amiodarone 200 MG Tab PO SCH (09:20)
[2017-10-23] MEDS: Tamsulosin 0.4 MG Cap.ER PO SCH (09:21)
[2017-10-23] MEDS: Potassium Chloride 10 MEQ Tab.ER PO SCH (09:21)
[2017-10-23] MEDS: Enoxaparin 40 MG/0.4 ML Syringe SUBCUT SCH (09:21)
--- NOTE | 2017-10-23 10:26 | PCM.DCSUM1 ---
Discharge Summary - Hospital Course Free Text/Narrative:: The patient is an 86-year-old man with complex medical history including coronary artery disease and atrial fibrillation. He recently underwent surgery for right colon cancer, had right adilson-colectomy. He was admitted with fever, chills and generalized weakness. CT scan of the abdomen suggested fluid collection around the site of recent surgery, possibly a seroma versus evolving abscess. Patient was started on intravenous antibiotics. Digoxin level was also found to be elevated on admission and this has improved. Repeat CT scan did not show any abscess, it did show pleural effusion and ascites, likely from third spacing/deconditioning. Patient was transferred to swing bed on 10/06 to receive 1 more week of antibiotics. #. Fever, SIRS Patient presented with subjective fever, and was found to have leukocytosis white count of 13,000 on admission. White blood cell count has returned to normal since admission on start of antibiotics. Blood cultures were negative Completed 21 days of IV abx #. Status post recent abdominal surgery Patient had right hemicolectomy #. Atrial fibrillation patient is in sinus rhythm at this time continue amiodarone stopped Metoprolol due to lower BPs Diagnosis: Stroke: No - Discharge Data Discharge Date: 10/23/17 Discharge Disposition: Home, Self-Care 01 Condition: Good - Patient Summary/Data Consults: Consultations 10/06/17 10:33 OT Evaluation and Treatment [CONS] Routine PT Evaluation and Treatment [CONS] Routine - Patient Instructions Diet: Usual Diet as Tolerated Activity: As Tolerated - Discharge Plan *PRESCRIPTION DRUG MONITORING PROGRAM REVIEWED*: Not Applicable *COPY OF PRESCRIPTION DRUG MONITORING REPORT IN PATIENT ZULLY: Not Applicable Home Medications: Home Meds Aspirin 162 mg PO DAILY 02/04/15 [History] Multivitamin [Multivitamins] 1 each PO DAILY 02/04/15 [History] Simvastatin 20 mg PO DAILY 02/04/15 [History] Tamsulosin [Flomax] 0.4 mg PO DAILY 02/04/15 [History] Vitamin E 400 unit PO DAILY 02/04/15 [History] Pantoprazole [ProTONIX] 40 mg PO DAILY 09/26/16 [History] Garlic 100 mg PO DAILY 09/27/16 [History] Amiodarone [Cordarone] 200 mg PO BID 09/29/17 [History] - Discharge Summary/Plan Comment DC Time >30 min.: No - General Info Date of Service: 10/23/17 Admission Dx/Problem (Free Text: Admission Diagnosis/Problem Admission Diagnosis/Problem weakness Subjective Update: He was seen this morning and found to be doing well. No new complaints. No fevers, chills. Functional Status: Reports: Pain Controlled, Tolerating Diet - Review of Systems General: Denies: Fever Pulmonary: Denies: Shortness of Breath Cardiovascular: Denies: Chest Pain Gastrointestinal: Denies: Abdominal Pain Neurological: Denies: Confusion - Patient Data Vitals - Most Recent: Last Vital Signs Temp 36.8 C 10/23/17 08:02 Pulse 93 10/23/17 08:02 Resp 20 10/23/17 08:02 BP 105/61 10/23/17 08:02 Pulse Ox 99 10/23/17 08:02 Weight - Most Recent: 94.801 kg Med Orders - Current: Current Medications Acetaminophen (Tylenol) 650 mg PO Q4H PRN PRN Reason: Pain (Mild 1-3)/fever Last Admin: 10/06/17 20:24 Dose: 650 mg Amiodarone HCl (Cordarone) 200 mg PO BID [facility] Last Admin: 10/23/17 09:20 Dose: 200 mg Aspirin (Aspirin) 162 mg PO DAILY [facility] Last Admin: 10/23/17 09:20 Dose: 162 mg Docusate Sodium (Colace) 100 mg PO BID PRN PRN Reason: Constipation Enoxaparin Sodium (Lovenox) 40 mg SUBCUT DAILY [facility] Last Admin: 10/23/17 09:21 Dose: 40 mg Ondansetron HCl (Zofran) 4 mg IVPUSH Q4H PRN PRN Reason: Nausea/Vomiting Pantoprazole Sodium (Protonix) 40 mg PO ACBRK [facility] Last Admin: 10/23/17 06:01 Dose: 40 mg Refresh Optive Own (Med) 0 each EYEBOTH ASDIRECTED PRN PRN Reason: Dry Eyes Last Admin: 10/21/17 11:58 Dose: 1 each Potassium Chloride (Klor-Con 10) 20 meq PO WITHBREAKFAST [facility] Last Admin: 10/23/17 09:21 Dose: 20 meq Senna/Docusate Sodium (Senna Plus) 1 tab PO DAILY [facility] Last Admin: 10/23/17 09:21 Dose: 1 tab Tamsulosin HCl (Flomax) 0.4 mg PO DAILY [facility] Last Admin: 10/23/17 09:21 Dose: 0.4 mg Trazodone HCl (Trazodone) 100 mg PO BEDTIME [facility] Last Admin: 10/22/17 21:45 Dose: 100 mg Discontinued Medications Piperacillin Sod/Tazobactam (Sod 3.375 gm/ Sodium Chloride) 100 mls @ 200 mls/ hr IV Q6H [facility] Last Infusion: 10/17/17 07:07 Dose: Infused Magnesium Citrate (Citrate Of Magnesia) 148 ml PO ONETIME ONE Stop: 10/21/17 23:56 Last Admin: 10/22/17 00:11 Dose: 148 ml Metoprolol Tartrate (Lopressor) 100 mg PO BID [facility] Last Admin: 10/20/17 10:28 Dose: Not Given Metoprolol Tartrate (Lopressor) 50 mg PO BID [facility] Last Admin: 10/22/17 09:30 Dose: Not Given Sodium Chloride (Saline Flush) 10 ml FLUSH ASDIRECTED PRN PRN Reason: Keep Vein Open Last Admin: 10/16/17 19:17 Dose: 10 ml Sodium Chloride (Saline Flush) 10 ml FLUSH ASDIRECTED PRN PRN Reason: Keep Vein Open - Exam General: Reports: Alert, Oriented Neck: Reports: Supple Lungs: Reports: Clear to Auscultation, Normal Respiratory Effort Cardiovascular: Reports: Regular Rate, Regular Rhythm GI/Abdominal Exam: Normal Bowel Sounds, Soft, Non-Tender Extremities: No Pedal Edema Psy/Mental Status: Reports: Alert, Normal Affect, Normal Mood
== END 2017-10-23 12:40 | disposition home or self-care (01) | DRG 863 ==
LOC: DL.MS 10:01 → UNDOADMIN 10:01 → DL.MS 10:35
PROVIDERS: ADMIT Hospitalist; ATTEND Hospitalist
DX: K68.11 Postprocedural retroperitoneal abscess (principal); K91.872 Postprocedural seroma of a digestive system organ or structure following a digestive system procedure; J90 Pleural effusion, not elsewhere classified; R18.8 Other ascites; C18.2 Malignant neoplasm of ascending colon; I25.10 Atherosclerotic heart disease of native coronary artery without angina pectoris; Y83.8 Other surgical procedures as the cause of abnormal reaction of the patient, or of later complication, without mention of misadventure at the time of the procedure; I48.91 Unspecified atrial fibrillation; E78.00 Pure hypercholesterolemia, unspecified; I10 Essential (primary) hypertension; K21.9 Gastro-esophageal reflux disease without esophagitis; G62.9 Polyneuropathy, unspecified; Z90.49 Acquired absence of other specified parts of digestive tract; Z91.040 Latex allergy status; Z88.2 Allergy status to sulfonamides; Z79.899 Other long term (current) drug therapy; Z79.82 Long term (current) use of aspirin
CPT/HCPCS: 97110-GO; 97110-GP; 97116-GP; 97162-GP; 97165-GO; 97530-GO; A9270-GY; J1650; J2543; J7050

== ENCOUNTER 2018-07-25 14:20 | Inpatient (IN) | payer MEDICARE, BC ==
[2018-07-25] MEDS ORDERED: Ondansetron 4 MG Tab.DIS PO PRN (15:07)
[2018-07-25] MEDS ORDERED: Acetaminophen 325 MG Tab PO PRN (15:07)
[2018-07-25] MEDS ORDERED: Acetaminophen/oxyCODONE 325-5 MG Tab PO PRN (15:07)
[2018-07-25] MEDS ORDERED: Non-Formulary Medication 1 Each (Ondansetron Hcl 8 MG) PO PRN (15:10)
[2018-07-25] MEDS ORDERED: SENNOSIDES 8.6 MG PO PRN (15:10)
[2018-07-25] MEDS ORDERED: EMOLLIENT COMBINATION NO 40 TOP PRN (15:10)
[2018-07-25] MEDS ORDERED: Loperamide 2 MG Cap PO PRN (15:10)
[2018-07-25] MEDS ORDERED: Non-Formulary Medication 1 Each (Prochlorperazine [Compazine] 10 MG) PO PRN (15:10)
[2018-07-25] MEDS ORDERED: Acetaminophen 500 MG Tab PO PRN (15:10)
[2018-07-25] MEDS ORDERED: TETRAHYDROZOLINE HCL EYEBOTH PRN (15:59)
[2018-07-25] MEDS ORDERED: Magnesium Hydroxide 400 MG/5 ML Susp 30 ML Cup PO PRN (21:00)
[2018-07-25] MEDS ORDERED: Docusate Sodium 100 MG Cap PO PRN (21:00)
[2018-07-25] MEDS: Simvastatin 10 MG Tab PO SCH (22:21)
[2018-07-25] MEDS: Cephalexin 500 MG Cap PO SCH (22:21)
[2018-07-25] MEDS: APIXABAN 5 MG PO SCH (22:24)
[2018-07-25] MEDS: CARBOXYMETHYLCELLULOSE EYEBOTH PRN (22:24)
--- NOTE | 2018-07-25 22:37 | HP ---
CHIEF COMPLAINT: Generalized debility with increased weakness and needing physical therapy and occupational therapy for strengthening, needing admission to swing bed. HISTORY OF PRESENTING ILLNESS: Mr. Nik Madrigal is an 87-year-old male with medical history significant for hypertension, hyperlipidemia, was recently diagnosed with colon cancer. 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 He underwent surgical resection of the cancer and had complications with right lower quadrant incisional hernia. He has been receiving chemoradiation treatment. During early part of July, that is, July 02, he was in a motel while receiving the chemoradiation treatment and had complications with profuse diarrhea. He had multiple episodes of diarrhea, and while he was in the bathroom, he fell down and had a syncopal episode. He was taken to [facility] on July 02, 2018, and was noted to be in acute cardiogenic shock, hypovolemic shock with possible sepsis. He also had complications with AFib with RVR and was admitted to the Intensive Care Unit requiring pressor treatment. He had resistant atrial fibrillation. He was started on multiple medications for atrial fibrillation, but he continued to be in AFib with RVR. He was evaluated by Cardiology Services, and on July 24, 2018, the patient underwent implantation of a dual-chamber permanent pacemaker placement and radiofrequency catheter ablation of the atrioventricular junction. Postprocedure, the patient remained stable and got admitted to swing bed at this time for continued cares with physical therapy and occupational therapy. At this time, the patient denies any complaints of chest pain. No shortness of breath. No abdominal pain. No nausea. No vomiting. No diarrhea. He complains of abdominal discomfort on the right lower quadrant, 3/10 to 4/10 in intensity, aggravated on palpation, relieved with pain medication, nonradiating type of pain, not associated with any nausea or vomiting. He denies any diarrhea at this juncture. Had a bowel movement prior to coming to the swing bed and also had a small bowel movement while he is here. The patient denied any history of chest pains on exertion. No history of dyspnea on exertion. No history of orthopnea or paroxysmal nocturnal dyspnea. The patient denied any history of hematemesis, hematochezia, or melenic stools. Normal bowel habits. The patient noted to have some incontinence to urine. REVIEW OF SYSTEMS: A complete review of systems including skin, ear, nose, and throat, cardiovascular system, respiratory system, gastrointestinal system, genitourinary system, hematology, oncology, neurology, allergy, immunology, constitutional were all evaluated and were negative except for the above-said notes. PAST MEDICAL HISTORY: Significant for hypertension, hyperlipidemia, spinal stenosis, history of prostate cancer in the past, coronary artery disease, history of colon cancer recently diagnosed, and status post resection, undergoing chemotherapy, radiation treatment. PAST SURGICAL HISTORY: Significant for: 1. Cardiac surgery, history of coronary artery stent placement in the past, status post permanent pacemaker placed on July 24, 2018, with radiofrequency catheter ambulation of atrioventricular node for paroxysmal atrial fibrillation. 2. Hemorrhoidectomy. 3. Hernia repair. 4. Right colectomy on August 27, 2017. 5. Tonsillectomy and adenoidectomy. 6. Total hip replacement on the right side. 7. Total knee replacement on the left side. 8. Total shoulder replacement on the left side. 9. Wrist surgery on the right side. FAMILY HISTORY: Significant for hypertension and diabetes in his mother, hypertension in his father, and cancer in his sisters. SOCIAL HISTORY: The patient had history of smoking tobacco in the past, but quit smoking in 1975. History of occasional alcohol intake. ALLERGIES: The patient noted to have allergies to sulfa antibiotics and latex. HOME MEDICATIONS: Include Keflex 500 mg 3 times a day, vitamin E 400 mg daily, simvastatin 20 mg at bedtime, Flomax 0.4 mg daily, multivitamin 1 tablet daily, aspirin 162 mg daily, Senokot 8.6 mg twice a day as needed, Compazine 10 mg every 6 hours as needed, potassium chloride 20 mEq daily, ondansetron 8 mg every 8 hours as needed, [place]-3 fatty acid 1 capsule daily, Lasix 20 mg daily, Eliquis 5 mg twice a day, acetaminophen 1000 mg every 6 hours as needed, garlic 1000 mg daily, Protonix 40 mg daily. PHYSICAL EXAMINATION: General: The patient is well oriented to time, place, and person. Follows commands spontaneously. Cardiovascular System: S1 and S2 heard with normal intensity. No gallops. Respiratory System: Clear to auscultation bilaterally. No wheeze. No crepitations. Abdomen: Soft. Bowel sounds positive. Mild tenderness to the right lower quadrant. No rigidity. No guarding. No rebound tenderness. Extremities: No edema in bilateral lower extremities. LABORATORY DATA: As reviewed from [facility] shows sodium 134, potassium 4.1, chloride 101, bicarb 27, BUN 15, creatinine 0.8, glucose 85. ASSESSMENT: 1. Cardiogenic shock with hypovolemic shock, resolved. 2. Atrial fibrillation, status post radiofrequency ablation of the AV kory junction along with permanent pacemaker placed. 3. Colon cancer, status post resection and chemoradiation treatment. 4. Status post right colectomy. Continues to have mild pain to the right lower quadrant. 5. Hypertension. 6. Hyperlipidemia. 7. Coronary artery disease, status post stents placed in the past. 8. Chronic anticoagulation with Eliquis. 9. Severe aortic stenosis. PLAN: 1. Generalized debility. The patient is admitted to swing bed for generalized debility. He will continue with physical therapy and occupational therapy. He has been at [facility] for almost 3 weeks with cardiogenic shock and possible sepsis. We will closely follow. He is noted to be on oral Keflex secondary to having pacemaker in place. We will continue the Keflex for next 4 to 5 days. 2. Hypertension. The patient's blood pressure seems to be in acceptable range. We will continue with the current treatment plan. Avoid any hypotensive episodes. 3. Chronic congestive heart failure with diastolic dysfunction. The patient's EF was within normal limits as per echocardiogram from [facility]. He is noted to be on low-dose Lasix. We will continue the same. He appears to be in euvolemic status. 4. Aortic stenosis. The patient noted to have severe aortic stenosis. No intervention needed at this time. 5. Atrial fibrillation. He is status post ablation. Continue with Eliquis for anticoagulation. 6. Continue with physical therapy and occupational therapy while in the hospital. 7. Code status: The patient wants to be DNR/DNI. 8. Reviewed the labs and medications. Reviewed the charts obtained from [facility]. [facility] /[id number]
[2018-07-26] MEDS: Pantoprazole 40 MG Tab.CR PO SCH (07:03)
[2018-07-26] MEDS: Cephalexin 500 MG Cap PO SCH ×3 (08:57→20:40)
[2018-07-26] MEDS: Potassium Chloride 10 MEQ Tab.ER PO SCH (08:58)
[2018-07-26] MEDS: Vitamin E (dl-alpha-tocopherol acetate) 400 Unit Cap PO SCH (08:58)
[2018-07-26] MEDS: Tamsulosin 0.4 MG Cap.ER PO SCH (08:58)
[2018-07-26] MEDS: Aspirin 81 MG Tab.EC PO SCH (08:59)
[2018-07-26] MEDS: Furosemide 20 MG Tab PO SCH (08:59)
[2018-07-26] MEDS: Multivitamins,Therapeutic Tab PO SCH (08:59)
[2018-07-26] MEDS: APIXABAN 5 MG PO SCH ×2 (09:00→20:42)
[2018-07-26] MEDS ORDERED: Enoxaparin 40 MG/0.4 ML Syringe SUBCUT SCH (09:00)
[2018-07-26] MEDS ORDERED: Polyethylene Glycol 3350 Powder 17 GM Packet PO PRN (09:00)
[2018-07-26] MEDS: MICONAZOLE 2% TOP SCH ×3 (11:43→20:40)
[2018-07-26] MEDS: Simvastatin 10 MG Tab PO SCH (20:40)
[2018-07-26] MEDS: CARBOXYMETHYLCELLULOSE EYEBOTH PRN (20:42)
[2018-07-27] MEDS: Pantoprazole 40 MG Tab.CR PO SCH (06:04)
[2018-07-27] MEDS: Vitamin E (dl-alpha-tocopherol acetate) 400 Unit Cap PO SCH (09:48)
[2018-07-27] MEDS: Potassium Chloride 10 MEQ Tab.ER PO SCH (09:48)
[2018-07-27] MEDS: Furosemide 20 MG Tab PO SCH (09:48)
[2018-07-27] MEDS: Tamsulosin 0.4 MG Cap.ER PO SCH (09:48)
[2018-07-27] MEDS: Multivitamins,Therapeutic Tab PO SCH (09:48)
[2018-07-27] MEDS: Aspirin 81 MG Tab.EC PO SCH (09:48)
[2018-07-27] MEDS: Cephalexin 500 MG Cap PO SCH ×3 (09:49→20:18)
[2018-07-27] MEDS: APIXABAN 5 MG PO SCH ×2 (09:50→20:17)
[2018-07-27] MEDS: MICONAZOLE 2% TOP SCH ×2 (09:51→20:17)
[2018-07-27] MEDS: Simvastatin 10 MG Tab PO SCH (20:18)
[2018-07-27] MEDS: CARBOXYMETHYLCELLULOSE EYEBOTH PRN (21:58)
[2018-07-28] MEDS: Pantoprazole 40 MG Tab.CR PO SCH (05:59)
[2018-07-28] MEDS: Aspirin 81 MG Tab.EC PO SCH (10:05)
[2018-07-28] MEDS: Furosemide 20 MG Tab PO SCH (10:06)
[2018-07-28] MEDS: Multivitamins,Therapeutic Tab PO SCH (10:06)
[2018-07-28] MEDS: Potassium Chloride 10 MEQ Tab.ER PO SCH (10:06)
[2018-07-28] MEDS: Tamsulosin 0.4 MG Cap.ER PO SCH (10:06)
[2018-07-28] MEDS: Vitamin E (dl-alpha-tocopherol acetate) 400 Unit Cap PO SCH (10:06)
[2018-07-28] MEDS: Cephalexin 500 MG Cap PO SCH ×3 (10:06→20:29)
[2018-07-28] MEDS: APIXABAN 5 MG PO SCH ×2 (10:07→20:30)
[2018-07-28] MEDS: MICONAZOLE 2% TOP SCH ×2 (10:07→20:30)
[2018-07-28] MEDS: Simvastatin 10 MG Tab PO SCH (20:29)
[2018-07-28] MEDS: CARBOXYMETHYLCELLULOSE EYEBOTH PRN (20:30)
[2018-07-29] MEDS ORDERED: Pantoprazole 40 MG Tab.CR PO ONE (04:40)
[2018-07-29] MEDS: Pantoprazole 40 MG Tab.CR PO SCH (07:31)
[2018-07-29] MEDS: Furosemide 20 MG Tab PO SCH (09:49)
[2018-07-29] MEDS: Tamsulosin 0.4 MG Cap.ER PO SCH (09:49)
[2018-07-29] MEDS: Multivitamins,Therapeutic Tab PO SCH (09:50)
[2018-07-29] MEDS: Cephalexin 500 MG Cap PO SCH ×2 (09:50→14:03)
[2018-07-29] MEDS: Vitamin E (dl-alpha-tocopherol acetate) 400 Unit Cap PO SCH (09:50)
[2018-07-29] MEDS: Aspirin 81 MG Tab.EC PO SCH (09:50)
[2018-07-29] MEDS: Potassium Chloride 10 MEQ Tab.ER PO SCH (09:50)
[2018-07-29] MEDS: MICONAZOLE 2% TOP SCH ×2 (09:52→21:26)
[2018-07-29] MEDS: APIXABAN 5 MG PO SCH ×2 (09:52→21:27)
[2018-07-29] MEDS: Simvastatin 10 MG Tab PO SCH (21:26)
[2018-07-30] MEDS: Pantoprazole 40 MG Tab.CR PO SCH (06:07)
[2018-07-30] MEDS: Aspirin 81 MG Tab.EC PO SCH (09:12)
[2018-07-30] MEDS: Furosemide 20 MG Tab PO SCH (09:12)
[2018-07-30] MEDS: Multivitamins,Therapeutic Tab PO SCH (09:12)
[2018-07-30] MEDS: Vitamin E (dl-alpha-tocopherol acetate) 400 Unit Cap PO SCH (09:12)
[2018-07-30] MEDS: Potassium Chloride 10 MEQ Tab.ER PO SCH (09:12)
[2018-07-30] MEDS: Tamsulosin 0.4 MG Cap.ER PO SCH (09:12)
[2018-07-30] MEDS: MICONAZOLE 2% TOP SCH ×2 (09:13→21:53)
[2018-07-30] MEDS: APIXABAN 5 MG PO SCH ×2 (09:15→21:53)
[2018-07-30] MEDS: Simvastatin 10 MG Tab PO SCH (21:54)
[2018-07-31] MEDS: Pantoprazole 40 MG Tab.CR PO SCH (05:55)
[2018-07-31] MEDS: Aspirin 81 MG Tab.EC PO SCH (09:06)
[2018-07-31] MEDS: Potassium Chloride 10 MEQ Tab.ER PO SCH (09:06)
[2018-07-31] MEDS: Multivitamins,Therapeutic Tab PO SCH (09:06)
[2018-07-31] MEDS: Furosemide 20 MG Tab PO SCH (09:06)
[2018-07-31] MEDS: Tamsulosin 0.4 MG Cap.ER PO SCH (09:06)
[2018-07-31] MEDS: MICONAZOLE 2% TOP SCH ×2 (09:09→20:48)
[2018-07-31] MEDS: APIXABAN 5 MG PO SCH ×2 (09:09→20:47)
[2018-07-31] MEDS: Vitamin E (dl-alpha-tocopherol acetate) 400 Unit Cap PO SCH (09:16)
[2018-07-31] MEDS: Simvastatin 10 MG Tab PO SCH (20:48)
[2018-08-01] MEDS: Pantoprazole 40 MG Tab.CR PO SCH (05:40)
[2018-08-01] MEDS: CARBOXYMETHYLCELLULOSE EYEBOTH PRN (08:48)
[2018-08-01] MEDS: APIXABAN 5 MG PO SCH ×2 (08:50→20:33)
[2018-08-01] MEDS: Furosemide 20 MG Tab PO SCH (08:51)
[2018-08-01] MEDS: Potassium Chloride 10 MEQ Tab.ER PO SCH (08:51)
[2018-08-01] MEDS: Tamsulosin 0.4 MG Cap.ER PO SCH (08:51)
[2018-08-01] MEDS: Aspirin 81 MG Tab.EC PO SCH (08:51)
[2018-08-01] MEDS: Multivitamins,Therapeutic Tab PO SCH (08:52)
[2018-08-01] MEDS: Vitamin E (dl-alpha-tocopherol acetate) 400 Unit Cap PO SCH (08:52)
[2018-08-01] MEDS: MICONAZOLE 2% TOP SCH ×2 (09:05→20:31)
[2018-08-01] MEDS: Mineral Oil/Petrolatum/Phenylephrine/Shark Liver Oil Oint 57 GM Tube RECTAL PRN (18:12)
[2018-08-01] MEDS: Simvastatin 10 MG Tab PO SCH (20:32)
[2018-08-02] MEDS: Pantoprazole 40 MG Tab.CR PO SCH (05:48)
[2018-08-02] MEDS: APIXABAN 5 MG PO SCH ×2 (09:43→20:54)
[2018-08-02] MEDS: Multivitamins,Therapeutic Tab PO SCH (09:44)
[2018-08-02] MEDS: Tamsulosin 0.4 MG Cap.ER PO SCH (09:44)
[2018-08-02] MEDS: Aspirin 81 MG Tab.EC PO SCH (09:44)
[2018-08-02] MEDS: Furosemide 20 MG Tab PO SCH (09:44)
[2018-08-02] MEDS: Vitamin E (dl-alpha-tocopherol acetate) 400 Unit Cap PO SCH (09:44)
[2018-08-02] MEDS: Potassium Chloride 10 MEQ Tab.ER PO SCH (09:44)
[2018-08-02] MEDS: MICONAZOLE 2% TOP SCH ×2 (09:45→20:55)
[2018-08-02] MEDS: Ibuprofen 400 MG Tab PO PRN ×2 (14:25→20:56)
[2018-08-02] MEDS: Simvastatin 10 MG Tab PO SCH (20:55)
[2018-08-02] MEDS: Mineral Oil/Petrolatum/Phenylephrine/Shark Liver Oil Oint 57 GM Tube RECTAL PRN (20:58)
[2018-08-03] MEDS: Pantoprazole 40 MG Tab.CR PO SCH (05:47)
[2018-08-03] MEDS: Furosemide 20 MG Tab PO SCH (10:15)
[2018-08-03] MEDS: Tamsulosin 0.4 MG Cap.ER PO SCH (10:15)
[2018-08-03] MEDS: Aspirin 81 MG Tab.EC PO SCH (10:15)
[2018-08-03] MEDS: Potassium Chloride 10 MEQ Tab.ER PO SCH (10:15)
[2018-08-03] MEDS: Multivitamins,Therapeutic Tab PO SCH (10:16)
[2018-08-03] MEDS: Vitamin E (dl-alpha-tocopherol acetate) 400 Unit Cap PO SCH (10:16)
[2018-08-03] MEDS: APIXABAN 5 MG PO SCH ×2 (10:18→22:30)
[2018-08-03] MEDS: Mineral Oil/Petrolatum/Phenylephrine/Shark Liver Oil Oint 57 GM Tube RECTAL PRN ×2 (10:25→18:29)
[2018-08-03] MEDS: MICONAZOLE 2% TOP SCH ×3 (10:26→23:41)
--- NOTE | 2018-08-03 12:31 | PCM.PN ---
- General Info Date of Service: 08/03/18 Admission Dx/Problem (Free Text): Debility Subjective Update: Seen and examined patient. Patient reports he continues to have significant loose stools. He has Imodium ordered, but is not scheduled. Also reported some urinary urgency, and incontinence that appears to be worse overnight. He said that he has no symptoms since he had the chemoradiotherapy. He denied any chest pain, shortness of breath, change in neurologic status. Functional Status: Reports: Ambulating - Review of Systems General: Reports: No Symptoms HEENT: Reports: No Symptoms Pulmonary: Reports: No Symptoms Cardiovascular: Reports: No Symptoms Gastrointestinal: Reports: Diarrhea Genitourinary: Reports: Urgency, Incontinence Skin: Reports: No Symptoms Neurological: Reports: No Symptoms Psychiatric: Reports: No Symptoms - Patient Data Vitals - Most Recent: Last Vital Signs Temp 36.8 C 08/03/18 08:00 Pulse 88 08/03/18 08:00 Resp 16 08/03/18 08:00 BP 95/52 L 08/03/18 08:00 Pulse Ox 97 08/03/18 08:00 Weight - Most Recent: 87.09 kg I&O - Last 24 Hours: Intake & Output 08/02/18 08/03/18 08/03/18 22:59 06:59 14:59 Intake Total 440 Balance 440 Med Orders - Current: Current Medications Acetaminophen (Tylenol Extra Strength) 1,000 mg PO Q6HR PRN PRN Reason: Pain Last Admin: 08/02/18 20:57 Dose: 1,000 mg Aspirin (Halfprin) 162 mg PO DAILY [facility] Last Admin: 08/03/18 10:15 Dose: 162 mg Docusate Sodium (Colace) 100 mg PO BID PRN PRN Reason: Constipation Furosemide (Lasix) 20 mg PO DAILY [facility] Last Admin: 08/03/18 10:15 Dose: 20 mg Ibuprofen (Motrin) 400 mg PO Q6H PRN PRN Reason: Pain Last Admin: 08/02/18 20:56 Dose: 400 mg Loperamide HCl (Imodium) 2 mg PO QID PRN PRN Reason: Diarrhea Last Admin: 07/31/18 09:06 Dose: 2 mg Magnesium Hydroxide (Milk Of Magnesia) 30 ml PO Q12HR PRN PRN Reason: Constipation Multivitamins (Thera) 1 each PO DAILY [facility] Last Admin: 08/03/18 10:16 Dose: 1 each Non-Formulary ( Apixaban [Eliquis] 5 Mg) Tab 5 mg PO BID [facility] Last Admin: 08/03/18 10:18 Dose: 5 mg Non-Formulary Medication (Emollient Combination No.40 [Cetaphil]) 1 applic TOP DAILY PRN PRN Reason: Dryness Non-Formulary ( (Miconazole 2%) Cream) 0 gram TOP BID [facility] Last Admin: 08/03/18 10:26 Dose: 1 gram Non-Formulary Medication (Sennosides [Senna Lax]) 8.6 mg PO BID PRN PRN Reason: Constipation Ondansetron HCl (Zofran Odt) 4 mg PO Q4HR PRN PRN Reason: nausea, able to take PO Oxycodone/Acetaminophen (Percocet 325-5 Mg) 1 tab PO Q4HR PRN PRN Reason: Pain (moderate 4-6) Pantoprazole Sodium (Protonix) 40 mg PO ACBRK [facility] Last Admin: 08/03/18 05:47 Dose: 40 mg Carboxymethylcellulo se [Refresh Tears 0. 5%] Own Med 0 each EYEBOTH QID PRN PRN Reason: Dry Eyes Last Admin: 08/01/18 08:48 Dose: 1 each Tetrahydrozoline Hcl [Visine] Own Med* * 0 each EYEBOTH QID PRN PRN Reason: other Phenyleph/Shark Oil/Min Oil/Petrol (Preparation H Oint) 1 gm RECTAL ASDIRECTED PRN PRN Reason: Hemorrhoids Last Admin: 08/03/18 10:25 Dose: 1 applic Polyethylene Glycol (Miralax) 17 gm PO DAILY PRN PRN Reason: Constipation Potassium Chloride (Klor-Con 10) 20 meq PO DAILY [facility] Last Admin: 08/03/18 10:15 Dose: 20 meq Simvastatin (Zocor) 20 mg PO BEDTIME [facility] Last Admin: 08/02/18 20:55 Dose: 20 mg Tamsulosin HCl (Flomax) 0.4 mg PO DAILY [facility] Last Admin: 08/03/18 10:15 Dose: 0.4 mg Vitamin E (Vitamin E) 400 units PO DAILY [facility] Last Admin: 08/03/18 10:16 Dose: 400 units Discontinued Medications Cephalexin (Keflex) 500 mg PO TID [facility] Last Admin: 07/29/18 14:03 Dose: 500 mg Enoxaparin Sodium (Lovenox) 40 mg SUBCUT DAILY [facility] Non-Formulary Medication ([place]-3 Fatty Acids/Fish Oil [Fish Oil 1,200 Mg Softgel]) 1 cap PO DAILY [facility] Last Admin: 07/28/18 10:08 Dose: Not Given Pantoprazole Sodium (Protonix) 40 mg PO .STK-MED ONE Stop: 07/29/18 04:41 - Exam General: Alert, Oriented Lungs: Clear to Auscultation, Normal Respiratory Effort Cardiovascular: Regular Rate, Regular Rhythm, Murmurs (Systolic heard at apex) GI/Abdominal Exam: Normal Bowel Sounds, Soft, Non-Tender, No Distention Skin: Warm, Dry, Intact Neurological: No New Focal Deficit Psy/Mental Status: Alert - Problem List Review Problem List Initiated/Reviewed/Updated: Yes - Plan Plan:: Mr. Zaragoza is an 87-year-old male with past medical history significant for hypertension, hyperlipidemia, recent diagnosis of colon cancer status post chemoradiotherapy was transferred from [facility] following a cardiogenic/ hypovolemic shock. His course was complicated with A. fib with RVR status post AV kory ablation and placement of permanent pacemaker. Is here for further treatment of debility. 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
[2018-08-03] MEDS ORDERED: Loperamide 2 MG Cap PO PRN (13:30)
[2018-08-03] MEDS: Loperamide 2 MG Cap PO SCH ×2 (17:20→17:24)
[2018-08-03] MEDS: Oxybutynin 5 MG Tab PO SCH ×2 (17:20→22:30)
[2018-08-03] MEDS: Simvastatin 10 MG Tab PO SCH (22:00)
[2018-08-04] MEDS: Loperamide 2 MG Cap PO SCH ×5 (00:09→17:57)
[2018-08-04] MEDS: Pantoprazole 40 MG Tab.CR PO SCH (05:21)
[2018-08-04] MEDS: APIXABAN 5 MG PO SCH ×2 (10:48→21:04)
[2018-08-04] MEDS: Furosemide 20 MG Tab PO SCH (10:49)
[2018-08-04] MEDS: Multivitamins,Therapeutic Tab PO SCH (10:49)
[2018-08-04] MEDS: Potassium Chloride 10 MEQ Tab.ER PO SCH (10:49)
[2018-08-04] MEDS: Aspirin 81 MG Tab.EC PO SCH (10:49)
[2018-08-04] MEDS: Vitamin E (dl-alpha-tocopherol acetate) 400 Unit Cap PO SCH (10:50)
[2018-08-04] MEDS: Oxybutynin 5 MG Tab PO SCH ×2 (10:50→21:03)
[2018-08-04] MEDS: Mineral Oil/Petrolatum/Phenylephrine/Shark Liver Oil Oint 57 GM Tube RECTAL PRN ×2 (10:55→21:02)
[2018-08-04] MEDS: MICONAZOLE 2% TOP SCH ×2 (10:56→21:01)
[2018-08-04] MEDS: Simvastatin 10 MG Tab PO SCH (21:03)
[2018-08-05] MEDS: Loperamide 2 MG Cap PO SCH ×4 (00:10→17:21)
[2018-08-05] MEDS: Pantoprazole 40 MG Tab.CR PO SCH (05:54)
[2018-08-05] MEDS: APIXABAN 5 MG PO SCH ×2 (09:05→21:24)
[2018-08-05] MEDS: Multivitamins,Therapeutic Tab PO SCH (09:06)
[2018-08-05] MEDS: Aspirin 81 MG Tab.EC PO SCH (09:06)
[2018-08-05] MEDS: Vitamin E (dl-alpha-tocopherol acetate) 400 Unit Cap PO SCH (09:06)
[2018-08-05] MEDS: Oxybutynin 5 MG Tab PO SCH ×2 (09:07→21:27)
[2018-08-05] MEDS: Furosemide 20 MG Tab PO SCH (09:07)
[2018-08-05] MEDS: Potassium Chloride 10 MEQ Tab.ER PO SCH (09:07)
[2018-08-05] MEDS: MICONAZOLE 2% TOP SCH ×2 (09:09→21:26)
[2018-08-05] MEDS: Mineral Oil/Petrolatum/Phenylephrine/Shark Liver Oil Oint 57 GM Tube RECTAL PRN (09:10)
[2018-08-05] MEDS ORDERED: Simethicone 80 MG Tab.Chew PO PRN (21:22)
[2018-08-05] MEDS: Simvastatin 10 MG Tab PO SCH (21:26)
[2018-08-06] MEDS: Loperamide 2 MG Cap PO SCH ×3 (00:13→12:47)
[2018-08-06] MEDS: Pantoprazole 40 MG Tab.CR PO SCH (06:03)
[2018-08-06 08:16] VITALS: BP 107/56
[2018-08-06] MEDS: Vitamin E (dl-alpha-tocopherol acetate) 400 Unit Cap PO SCH (09:21)
[2018-08-06] MEDS: Aspirin 81 MG Tab.EC PO SCH (09:21)
[2018-08-06] MEDS: Multivitamins,Therapeutic Tab PO SCH (09:21)
[2018-08-06] MEDS: Oxybutynin 5 MG Tab PO SCH (09:22)
[2018-08-06] MEDS: Potassium Chloride 10 MEQ Tab.ER PO SCH (09:22)
[2018-08-06] MEDS: Furosemide 20 MG Tab PO SCH (09:22)
[2018-08-06] MEDS: APIXABAN 5 MG PO SCH (09:23)
[2018-08-06] MEDS: MICONAZOLE 2% TOP SCH (09:25)
--- NOTE | 2018-08-06 09:43 | PCM.PN ---
- General Info Date of Service: 08/06/18 - Patient Data Vitals - Most Recent: Last Vital Signs Temp 37.1 C 08/06/18 08:00 Pulse 81 08/06/18 08:00 Resp 18 08/06/18 08:00 BP 107/56 L 08/06/18 08:00 Pulse Ox 99 08/06/18 08:00 Weight - Most Recent: 87.09 kg I&O - Last 24 Hours: Intake & Output 08/05/18 08/06/18 08/06/18 22:59 06:59 14:59 Intake Total 480 Balance 480 Med Orders - Current: Current Medications Acetaminophen (Tylenol Extra Strength) 1,000 mg PO Q6HR PRN PRN Reason: Pain Last Admin: 08/02/18 20:57 Dose: 1,000 mg Aspirin (Halfprin) 162 mg PO DAILY [facility] Last Admin: 08/06/18 09:21 Dose: 162 mg Docusate Sodium (Colace) 100 mg PO BID PRN PRN Reason: Constipation Furosemide (Lasix) 20 mg PO DAILY [facility] Last Admin: 08/06/18 09:22 Dose: 20 mg Ibuprofen (Motrin) 400 mg PO Q6H PRN PRN Reason: Pain Last Admin: 08/02/18 20:56 Dose: 400 mg Loperamide HCl (Imodium) 2 mg PO Q6HR [facility] Last Admin: 08/06/18 06:03 Dose: 2 mg Magnesium Hydroxide (Milk Of Magnesia) 30 ml PO Q12HR PRN PRN Reason: Constipation Multivitamins (Thera) 1 each PO DAILY [facility] Last Admin: 08/06/18 09:21 Dose: 1 each Non-Formulary ( Apixaban [Eliquis] 5 Mg) Tab 5 mg PO BID [facility] Last Admin: 08/06/18 09:23 Dose: 5 mg Non-Formulary Medication (Emollient Combination No.40 [Cetaphil]) 1 applic TOP DAILY PRN PRN Reason: Dryness Non-Formulary ( (Miconazole 2%) Cream) 0 gram TOP BID [facility] Last Admin: 08/06/18 09:25 Dose: 1 gram Non-Formulary Medication (Sennosides [Senna Lax]) 8.6 mg PO BID PRN PRN Reason: Constipation Ondansetron HCl (Zofran Odt) 4 mg PO Q4HR PRN PRN Reason: nausea, able to take PO Oxybutynin Chloride (Oxybutynin) 5 mg PO BID [facility] Last Admin: 08/06/18 09:22 Dose: 5 mg Oxycodone/Acetaminophen (Percocet 325-5 Mg) 1 tab PO Q4HR PRN PRN Reason: Pain (moderate 4-6) Pantoprazole Sodium (Protonix) 40 mg PO ACBRK [facility] Last Admin: 08/06/18 06:03 Dose: 40 mg Carboxymethylcellulo se [Refresh Tears 0. 5%] Own Med 0 each EYEBOTH QID PRN PRN Reason: Dry Eyes Last Admin: 08/01/18 08:48 Dose: 1 each Tetrahydrozoline Hcl [Visine] Own Med* * 0 each EYEBOTH QID PRN PRN Reason: other Phenyleph/Shark Oil/Min Oil/Petrol (Preparation H Oint) 1 gm RECTAL ASDIRECTED PRN PRN Reason: Hemorrhoids Last Admin: 08/05/18 09:10 Dose: 1 applic Polyethylene Glycol (Miralax) 17 gm PO DAILY PRN PRN Reason: Constipation Potassium Chloride (Klor-Con 10) 20 meq PO DAILY [facility] Last Admin: 08/06/18 09:22 Dose: 20 meq Simethicone (Simethicone) 80 mg PO BID PRN PRN Reason: INDIGESTION/GAS Simvastatin (Zocor) 20 mg PO BEDTIME [facility] Last Admin: 08/05/18 21:26 Dose: 20 mg Vitamin E (Vitamin E) 400 units PO DAILY [facility] Last Admin: 08/06/18 09:21 Dose: 400 units Discontinued Medications Cephalexin (Keflex) 500 mg PO TID [facility] Last Admin: 07/29/18 14:03 Dose: 500 mg Enoxaparin Sodium (Lovenox) 40 mg SUBCUT DAILY [facility] Loperamide HCl (Imodium) 2 mg PO QID PRN PRN Reason: Diarrhea Last Admin: 07/31/18 09:06 Dose: 2 mg Non-Formulary Medication ([place]-3 Fatty Acids/Fish Oil [Fish Oil 1,200 Mg Softgel]) 1 cap PO DAILY [facility] Last Admin: 07/28/18 10:08 Dose: Not Given Pantoprazole Sodium (Protonix) 40 mg PO .STK-MED ONE Stop: 07/29/18 04:41 Tamsulosin HCl (Flomax) 0.4 mg PO DAILY [facility] Last Admin: 08/03/18 10:15 Dose: 0.4 mg - My Orders Last 24 Hours: My Active Orders 08/05/18 21:22 Simethicone 80 mg PO BID PRN - Plan Plan:: Mr. Zaragoza is an 87-year-old male with past medical history significant for hypertension, hyperlipidemia, recent diagnosis of colon cancer status post chemoradiotherapy was transferred from [facility] following a cardiogenic/ hypovolemic shock. His course was complicated with A. fib with RVR status post AV kory ablation and placement of permanent pacemaker. Is here for further treatment of debility. 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
--- NOTE | 2018-08-06 09:46 | PCM.DCSUM1 ---
Discharge Summary - Discharge Data Discharge Disposition: Home, Self-Care 01 Condition: Good - Patient Summary/Data Consults: Consultations 07/25/18 15:07 OT Evaluation and Treatment [CONS] Routine PT Evaluation and Treatment [CONS] Routine - Discharge Plan Home Medications: Home Meds Multivitamin [Multivitamins] 1 each PO DAILY 02/04/15 [History] Simvastatin 20 mg PO BEDTIME 02/04/15 [History] Tamsulosin [Flomax] 0.4 mg PO DAILY 02/04/15 [History] Vitamin E 400 unit PO DAILY 02/04/15 [History] Pantoprazole [ProTONIX] 40 mg PO DAILY 09/26/16 [History] Acetaminophen [Acetaminophen Extra Strength] 1,000 mg PO Q6H PRN 07/25/18 [ History] Apixaban [Eliquis] 5 mg PO BID 07/25/18 [History] Aspirin [Halfprin] 162 mg PO DAILY 07/25/18 [History] Carboxymethylcellulose Sodium [Refresh Tears 0.5%] 1 drop EYEBOTH QID PRN [History] Emollient Combination No.40 [Cetaphil] 1 applic TOP DAILY PRN 07/25/18 [History] Furosemide [Lasix] 20 mg PO DAILY 07/25/18 [History] Garlic 1,000 mg PO DAILY 07/25/18 [History] Ibuprofen 400 mg PO Q6H PRN 07/25/18 [History] Loperamide HCl [Loperamide] 2 mg PO QID PRN 07/25/18 [History] Miconazole [Miconazole 2% Crm] 1 gram TOP BID 07/25/18 [History] [place]-3 Fatty Acids/Fish Oil [Fish Oil 1,200 mg Softgel] 1 cap PO DAILY [History] Ondansetron HCl [Zofran] 8 mg PO Q8H PRN 07/25/18 [History] Potassium Chloride 20 meq PO DAILY 07/25/18 [History] Prochlorperazine [Compazine] 10 mg PO Q6H PRN 07/25/18 [History] Sennosides [Senna Lax] 8.6 mg PO BID PRN 07/25/18 [History] Tetrahydrozoline HCl [Visine] 1 drop EYEBOTH QID PRN 07/25/18 [History] - Patient Data Vitals - Most Recent: Last Vital Signs Temp 37.1 C 08/06/18 08:00 Pulse 81 08/06/18 08:00 Resp 18 08/06/18 08:00 BP 107/56 L 08/06/18 08:00 Pulse Ox 99 08/06/18 08:00 Weight - Most Recent: 87.09 kg I&O - Last 24 hours: Intake & Output 08/05/18 08/06/18 08/06/18 22:59 06:59 14:59 Intake Total 480 Balance 480 Med Orders - Current: Current Medications Acetaminophen (Tylenol Extra Strength) 1,000 mg PO Q6HR PRN PRN Reason: Pain Last Admin: 08/02/18 20:57 Dose: 1,000 mg Aspirin (Halfprin) 162 mg PO DAILY [facility] Last Admin: 08/06/18 09:21 Dose: 162 mg Docusate Sodium (Colace) 100 mg PO BID PRN PRN Reason: Constipation Furosemide (Lasix) 20 mg PO DAILY [facility] Last Admin: 08/06/18 09:22 Dose: 20 mg Ibuprofen (Motrin) 400 mg PO Q6H PRN PRN Reason: Pain Last Admin: 08/02/18 20:56 Dose: 400 mg Loperamide HCl (Imodium) 2 mg PO Q6HR [facility] Last Admin: 08/06/18 06:03 Dose: 2 mg Magnesium Hydroxide (Milk Of Magnesia) 30 ml PO Q12HR PRN PRN Reason: Constipation Multivitamins (Thera) 1 each PO DAILY [facility] Last Admin: 08/06/18 09:21 Dose: 1 each Non-Formulary ( Apixaban [Eliquis] 5 Mg) Tab 5 mg PO BID [facility] Last Admin: 08/06/18 09:23 Dose: 5 mg Non-Formulary Medication (Emollient Combination No.40 [Cetaphil]) 1 applic TOP DAILY PRN PRN Reason: Dryness Non-Formulary ( (Miconazole 2%) Cream) 0 gram TOP BID [facility] Last Admin: 08/06/18 09:25 Dose: 1 gram Non-Formulary Medication (Sennosides [Senna Lax]) 8.6 mg PO BID PRN PRN Reason: Constipation Ondansetron HCl (Zofran Odt) 4 mg PO Q4HR PRN PRN Reason: nausea, able to take PO Oxybutynin Chloride (Oxybutynin) 5 mg PO BID [facility] Last Admin: 08/06/18 09:22 Dose: 5 mg Oxycodone/Acetaminophen (Percocet 325-5 Mg) 1 tab PO Q4HR PRN PRN Reason: Pain (moderate 4-6) Pantoprazole Sodium (Protonix) 40 mg PO ACBRK [facility] Last Admin: 08/06/18 06:03 Dose: 40 mg Carboxymethylcellulo se [Refresh Tears 0. 5%] Own Med 0 each EYEBOTH QID PRN PRN Reason: Dry Eyes Last Admin: 08/01/18 08:48 Dose: 1 each Tetrahydrozoline Hcl [Visine] Own Med* * 0 each EYEBOTH QID PRN PRN Reason: other Phenyleph/Shark Oil/Min Oil/Petrol (Preparation H Oint) 1 gm RECTAL ASDIRECTED PRN PRN Reason: Hemorrhoids Last Admin: 08/05/18 09:10 Dose: 1 applic Polyethylene Glycol (Miralax) 17 gm PO DAILY PRN PRN Reason: Constipation Potassium Chloride (Klor-Con 10) 20 meq PO DAILY [facility] Last Admin: 08/06/18 09:22 Dose: 20 meq Simethicone (Simethicone) 80 mg PO BID PRN PRN Reason: INDIGESTION/GAS Simvastatin (Zocor) 20 mg PO BEDTIME [facility] Last Admin: 08/05/18 21:26 Dose: 20 mg Vitamin E (Vitamin E) 400 units PO DAILY [facility] Last Admin: 08/06/18 09:21 Dose: 400 units Discontinued Medications Cephalexin (Keflex) 500 mg PO TID [facility] Last Admin: 07/29/18 14:03 Dose: 500 mg Enoxaparin Sodium (Lovenox) 40 mg SUBCUT DAILY [facility] Loperamide HCl (Imodium) 2 mg PO QID PRN PRN Reason: Diarrhea Last Admin: 07/31/18 09:06 Dose: 2 mg Non-Formulary Medication ([place]-3 Fatty Acids/Fish Oil [Fish Oil 1,200 Mg Softgel]) 1 cap PO DAILY [facility] Last Admin: 07/28/18 10:08 Dose: Not Given Pantoprazole Sodium (Protonix) 40 mg PO .STK-MED ONE Stop: 07/29/18 04:41 Tamsulosin HCl (Flomax) 0.4 mg PO DAILY [facility] Last Admin: 08/03/18 10:15 Dose: 0.4 mg
--- NOTE | 2018-08-06 11:05 | PCM.DCSUM1 ---
Discharge Summary - Hospital Course Free Text/Narrative:: Mr. Zaragoza is an 87-year-old male with past medical history significant for hypertension, hyperlipidemia, recent diagnosis of colon cancer status post chemoradiotherapy was transferred from [facility] following a cardiogenic/ hypovolemic shock. His course was complicated with A. fib with RVR status post AV kory ablation and placement of permanent pacemaker. he was here for further treatment of debility. Patient continued to be weak and he needs physical therapy for home exercise program/strengthening and [facility] for teaching of home medication regimen. The patient requires assist 1 in order to leave his home and patient displays inability to leave home. leaving home requires a taxing effort due to weakness plus deconditioning. - Discharge Data Discharge Date: 08/06/18 Discharge Disposition: Home, W Home Health Agency Condition: Good - Patient Summary/Data Consults: Consultations 07/25/18 15:07 OT Evaluation and Treatment [CONS] Routine PT Evaluation and Treatment [CONS] Routine - Discharge Plan *PRESCRIPTION DRUG MONITORING PROGRAM REVIEWED*: Not Applicable *COPY OF PRESCRIPTION DRUG MONITORING REPORT IN PATIENT ZULLY: Not Applicable Prescriptions/Med Rec: Acetaminophen [Tylenol Extra Strength] 1,000 mg PO Q8HR PRN #90 tablet PRN Reason: Pain Loperamide HCl [Loperamide] 2 mg PO QID PRN #60 capsule PRN Reason: Diarrhea Oxybutynin 5 mg PO BID #60 tablet Home Medications: Home Meds Multivitamin [Multivitamins] 1 each PO DAILY 02/04/15 [History] Simvastatin 20 mg PO BEDTIME 02/04/15 [History] Tamsulosin [Flomax] 0.4 mg PO DAILY 02/04/15 [History] Vitamin E 400 unit PO DAILY 02/04/15 [History] Pantoprazole [ProTONIX] 40 mg PO DAILY 09/26/16 [History] Acetaminophen [Acetaminophen Extra Strength] 1,000 mg PO Q6H PRN 07/25/18 [ History] Apixaban [Eliquis] 5 mg PO BID 07/25/18 [History] Aspirin [Halfprin] 162 mg PO DAILY 07/25/18 [History] Carboxymethylcellulose Sodium [Refresh Tears 0.5%] 1 drop EYEBOTH QID PRN [History] Emollient Combination No.40 [Cetaphil] 1 applic TOP DAILY PRN 07/25/18 [History] Furosemide [Lasix] 20 mg PO DAILY 07/25/18 [History] Garlic 1,000 mg PO DAILY 07/25/18 [History] Miconazole [Miconazole 2% Crm] 1 gram TOP BID 07/25/18 [History] [place]-3 Fatty Acids/Fish Oil [Fish Oil 1,200 mg Softgel] 1 cap PO DAILY [History] Ondansetron HCl [Zofran] 8 mg PO Q8H PRN 07/25/18 [History] Potassium Chloride 20 meq PO DAILY 07/25/18 [History] Prochlorperazine [Compazine] 10 mg PO Q6H PRN 07/25/18 [History] Tetrahydrozoline HCl [Visine] 1 drop EYEBOTH QID PRN 07/25/18 [History] Acetaminophen [Tylenol Extra Strength] 1,000 mg PO Q8HR PRN #90 tablet 08/06/18 [Rx] Loperamide HCl [Loperamide] 2 mg PO QID PRN #60 capsule 08/06/18 [Rx] Oxybutynin 5 mg PO BID #60 tablet 08/06/18 [Rx] Patient's Own Medication [Ptom] 0 each EYEBOTH QID PRN each 08/06/18 [Rx] Patient's Own Medication [Ptom] 0 each EYEBOTH QID PRN each 08/06/18 [Rx] - Discharge Summary/Plan Comment DC Time >30 min.: Yes - General Info Date of Service: 08/06/18 Admission Dx/Problem (Free Text: Debility - Review of Systems General: Reports: No Symptoms HEENT: Reports: No Symptoms Pulmonary: Reports: No Symptoms Cardiovascular: Reports: No Symptoms Gastrointestinal: Reports: No Symptoms Genitourinary: Reports: No Symptoms Musculoskeletal: Reports: No Symptoms Skin: Reports: No Symptoms Neurological: Reports: No Symptoms Psychiatric: Reports: No Symptoms - Patient Data Vitals - Most Recent: Last Vital Signs Temp 37.1 C 08/06/18 08:00 Pulse 81 08/06/18 08:00 Resp 18 08/06/18 08:00 BP 107/56 L 08/06/18 08:00 Pulse Ox 99 08/06/18 08:00 Weight - Most Recent: 87.09 kg I&O - Last 24 hours: Intake & Output 08/05/18 08/06/18 08/06/18 22:59 06:59 14:59 Intake Total 480 Balance 480 Med Orders - Current: Current Medications Acetaminophen (Tylenol Extra Strength) 1,000 mg PO Q6HR PRN PRN Reason: Pain Last Admin: 08/02/18 20:57 Dose: 1,000 mg Aspirin (Halfprin) 162 mg PO DAILY [facility] [place] Last Admin: 08/06/18 09:21 Dose: 162 mg Docusate Sodium (Colace) 100 mg PO BID PRN PRN Reason: Constipation Furosemide (Lasix) 20 mg PO DAILY [facility] [place] Last Admin: 08/06/18 09:22 Dose: 20 mg Ibuprofen (Motrin) 400 mg PO Q6H PRN PRN Reason: Pain Last Admin: 08/02/18 20:56 Dose: 400 mg Loperamide HCl (Imodium) 2 mg PO Q6HR [facility] [place] Last Admin: 08/06/18 06:03 Dose: 2 mg Magnesium Hydroxide (Milk Of Magnesia) 30 ml PO Q12HR PRN PRN Reason: Constipation Multivitamins (Thera) 1 each PO DAILY [facility] [place] Last Admin: 08/06/18 09:21 Dose: 1 each Non-Formulary ( Apixaban [Eliquis] 5 Mg) Tab 5 mg PO BID [facility] [place] Last Admin: 08/06/18 09:23 Dose: 5 mg Non-Formulary Medication (Emollient Combination No.40 [Cetaphil]) 1 applic TOP DAILY PRN PRN Reason: Dryness Non-Formulary ( (Miconazole 2%) Cream) 0 gram TOP BID [facility] [place] Last Admin: 08/06/18 09:25 Dose: 1 gram Non-Formulary Medication (Sennosides [Senna Lax]) 8.6 mg PO BID PRN PRN Reason: Constipation Ondansetron HCl (Zofran Odt) 4 mg PO Q4HR PRN PRN Reason: nausea, able to take PO Oxybutynin Chloride (Oxybutynin) 5 mg PO BID [facility] [place] Last Admin: 08/06/18 09:22 Dose: 5 mg Oxycodone/Acetaminophen (Percocet 325-5 Mg) 1 tab PO Q4HR PRN PRN Reason: Pain (moderate 4-6) Pantoprazole Sodium (Protonix) 40 mg PO ACBRK [facility] [place] Last Admin: 08/06/18 06:03 Dose: 40 mg Carboxymethylcellulo se [Refresh Tears 0. 5%] Own Med 0 each EYEBOTH QID PRN PRN Reason: Dry Eyes Last Admin: 08/01/18 08:48 Dose: 1 each Tetrahydrozoline Hcl [Visine] Own Med* * 0 each EYEBOTH QID PRN PRN Reason: other Phenyleph/Shark Oil/Min Oil/Petrol (Preparation H Oint) 1 gm RECTAL ASDIRECTED PRN PRN Reason: Hemorrhoids Last Admin: 08/05/18 09:10 Dose: 1 applic Polyethylene Glycol (Miralax) 17 gm PO DAILY PRN PRN Reason: Constipation Potassium Chloride (Klor-Con 10) 20 meq PO DAILY [facility] [place] Last Admin: 08/06/18 09:22 Dose: 20 meq Simethicone (Simethicone) 80 mg PO BID PRN PRN Reason: INDIGESTION/GAS Simvastatin (Zocor) 20 mg PO BEDTIME [facility] [place] Last Admin: 08/05/18 21:26 Dose: 20 mg Vitamin E (Vitamin E) 400 units PO DAILY [facility] [place] Last Admin: 08/06/18 09:21 Dose: 400 units Discontinued Medications Cephalexin (Keflex) 500 mg PO TID [facility] [place] Last Admin: 07/29/18 14:03 Dose: 500 mg Enoxaparin Sodium (Lovenox) 40 mg SUBCUT DAILY [facility] [place] Loperamide HCl (Imodium) 2 mg PO QID PRN PRN Reason: Diarrhea Last Admin: 07/31/18 09:06 Dose: 2 mg Non-Formulary Medication ([place]-3 Fatty Acids/Fish Oil [Fish Oil 1,200 Mg Softgel]) 1 cap PO DAILY [facility] [place] Last Admin: 07/28/18 10:08 Dose: Not Given Pantoprazole Sodium (Protonix) 40 mg PO .STK-MED ONE Stop: 07/29/18 04:41 Tamsulosin HCl (Flomax) 0.4 mg PO DAILY [facility] [place] Last Admin: 08/03/18 10:15 Dose: 0.4 mg - Exam General: Reports: Alert, Oriented Lungs: Reports: Clear to Auscultation, Normal Respiratory Effort Cardiovascular: Reports: Regular Rate GI/Abdominal Exam: Normal Bowel Sounds, Soft, Non-Tender, No Distention Extremities: No Pedal Edema Skin: Reports: Warm, Dry, Intact Neurological: Reports: No New Focal Deficit Psy/Mental Status: Reports: Alert, Normal Affect, Normal Mood
== END 2018-08-06 14:30 | disposition home health service (06) | DRG 948 ==
LOC: DL.MS 14:24 → UNDOADMIN 14:24 → DL.MS 15:07
PROVIDERS: ADMIT Internal Medicine; ATTEND Internal Medicine
DX: R53.81 Other malaise (principal); I48.1 Persistent atrial fibrillation; I50.32 Chronic diastolic (congestive) heart failure; E78.5 Hyperlipidemia, unspecified; Z66 Do not resuscitate; I25.10 Atherosclerotic heart disease of native coronary artery without angina pectoris; Z96.641 Presence of right artificial hip joint; Z96.652 Presence of left artificial knee joint; Z96.612 Presence of left artificial shoulder joint; R32 Unspecified urinary incontinence; R15.9 Full incontinence of feces; I11.0 Hypertensive heart disease with heart failure; I35.0 Nonrheumatic aortic (valve) stenosis; Z85.038 Personal history of other malignant neoplasm of large intestine; Z92.21 Personal history of antineoplastic chemotherapy; Z88.2 Allergy status to sulfonamides; Z95.5 Presence of coronary angioplasty implant and graft; Z91.040 Latex allergy status; Z87.891 Personal history of nicotine dependence; Z79.899 Other long term (current) drug therapy; Z95.0 Presence of cardiac pacemaker
CPT/HCPCS: 51798; 97110-GO; 97110-GP; 97116-GP; 97162-GP; 97166-GO; 97530-GO; 97535-GO; A9270-GY